=== PATIENT | male | born 1990 | race Caucasian/White ===

== ENCOUNTER 2019-09-22 19:51 | Emergency (ER) | payer OTHER, SELFPAY ==
[2019-09-22 20:01] VITALS: BP 141/84; PULSE 98; RESP 14; TEMP 37; O2SAT 97; BMI 31.9
[2019-09-22 20:45] VITALS: BP 141/84; PULSE 95; O2SAT 94
--- NOTE | 2019-09-22 20:50 | ED.SKABFB ---
HPI - Skin/Abscess/Foreign Bdy General Chief complaint: Skin/Abscess/Foreign Body Stated complaint: Bit or Allergic Reation on Right Side Collar Bone Time Seen by Provider: 09/22/19 20:35 Source: patient Mode of arrival: Ambulatory History of Present Illness HPI narrative: 28-year-old otherwise healthy gentleman presents with a rash developing on the right side of his neck and extending toward his shoulder. Mildly pruritic in causing some simple discomfort with moving his neck. He does have a history of active chickenpox when he was a child. He is not noticing any fevers or systemic viral-like symptoms or myalgias. He has no other complaints today Related Data Previous Rx's Medication Instructions Recorded valacyclovir 1,000 mg PO Q8H #21 tab 09/22/19 Allergies Allergy/AdvReac Type Severity Reaction Status Date / Time No Known Drug Allergies Allergy Verified 09/22/19 20:01 Review of Systems Review of Systems Narrative: Pertinent positive and negative findings as per HPI Remainder of review of systems is otherwise unremarkable for Constitutional: Fevers, chills, weakness ENT: No sore throat, neck pain, ear pain CV: Chest pain, palpitations, dyspnea on exertion Respiratory: Cough, wheeze, dyspnea GI: Nausea, vomiting, diarrhea, change in bowel habits, black or bloody stools : Dysuria, hematuria, flank pain Neuro: Syncope, dizziness, tingling Patient History Medical History Healthy adult (Acute) Social History Smoking Status: Never smoker Smoking Status: Never smoker Substance Use Type: does not use Exam Narrative Exam Narrative: General: Alert appropriate in no acute distress Respiratory: Able to speak in full sentences, no obvious respiratory distress Skin: Developing erythematous plaques with vesicles beginning to develop within the last few hours, in a C4 distribution Neurologic: Grossly intact no obvious asymmetries or abnormalities Psych, appropriate insight and affect, cooperative Initial Vital Signs Initial Vital Signs: Vital Signs Temperature 98.6 F 09/22/19 20:01 Pulse Rate 98 H 09/22/19 20:01 Respiratory Rate 14 09/22/19 20:01 Blood Pressure 141/84 H 09/22/19 20:01 Pulse Oximetry 97 09/22/19 20:01 Course Orders Ordered: Discontinued Medications Valacyclovir HCl (Valtrex) 1,000 mg PO NOW ONE Stop: 09/22/19 20:46 Vital Signs Vital signs: Vital Signs - 8 hr 09/22/19 20:01 09/22/19 20:45 Temperature 98.6 F Pulse Rate 98 H 95 H Respiratory Rate 14 Blood Pressure 141/84 H Blood Pressure [Left Arm] 141/84 H Pulse Oximetry 97 94 MDM - Skin/Abscess/Foreign Bdy Medical Records Attestation: I reviewed the patient's medical records. MDM Narrative Medical decision making narrative: Clinically this appears to be an early presentation of the right-sided C4 shingles outbreak. Will treat with 7 days of valacyclovir. Does not appear to be cellulitis, bug bites or allergic reaction. Patient is safe for home discharge Discharge Plan Departure Patient Disposition: Home Clinical Impression: Shingles Qualifiers: Herpes zoster complications: without complications Qualified Code(s): B02.9 - Zoster without complications Instructions: DI for Shingles Activity Restrictions/Additional Instructions: Thank you for coming in today The rash that your developing over your neck and shoulder area looks like it is shingles. The recommendation to decrease the overall outbreak and help prevent discomfort and pain for you is to use an antiviral medication, Valacyclovir 1000 mg, 3 times a day for 7 days. This may develop into a blistering type rash. If that happens the liquid inside the blisters is very contagious with chickenpox. Once the blisters have crusted over you are no longer contagious. Simply keeping the rash covered in making sure your washing her hands after you have touched it or applied any dressings will be safe and making sure that your not sharing chickenpox with anyone else If the rash seems like it is spreading to the left side of your body, then it is less likely to be shingles and you would need to be re-evaluated. It is not uncommon to feel like your coming down with a viral infection and it can take up to 2 weeks for the rash to completely heal. As long as you are feeling well it is okay to continue working. If you feel that things are getting worse develop new or different symptoms or have further questions please feel free to return to the emergency department and I am happy to re-evaluate Prescriptions: New valacyclovir 1 gram tablet 1,000 mg PO Q8H Qty: 21 RF: 0
[2019-09-22 21:00] VITALS: BP 141/85; PULSE 91; RESP 18; O2SAT 96
[2019-09-22] MEDS: ACYCLOVIR 200 MG CAPSULE 800 MG PO (21:21)
== END 2019-09-22 21:27 | disposition home or self-care (01) ==
PROVIDERS: Emergency Provider Emergency Medicine
DX: B02.9 Zoster without complications (principal)
CPT/HCPCS: 99283

== ENCOUNTER 2022-11-29 07:53 | Emergency (ER) | payer OTHER, SELFPAY ==
[2022-11-29] VITALS (8 sets, daily range): BP systolic 116–130; BP diastolic 60–84; PULSE 65–76; RESP 12–19; TEMP 36.4; O2SAT 94–98; BMI 34.2
--- NOTE | 2022-11-29 08:20 | DI.RAD.S_ITS ---
PROCEDURE: XR CHEST 1V INDICATIONS: chest pain TECHNIQUE: One view of the chest was acquired. COMPARISON: None. FINDINGS: Surgical changes and devices: None. Lungs and pleura: The lungs are clear. No pleural effusions or pneumothorax. Mediastinum: Mediastinal contours appear normal. Heart size is normal. Bones and chest wall: No suspicious bony lesions. Overlying soft tissues appear unremarkable. IMPRESSION: No acute cardiopulmonary pathology. Dictated by: Malik Means M.D. on 11/29/2022 at 8:33 Approved by: Malik Means M.D. on 11/29/2022 at 8:33
[2022-11-29 08:29] LABS: Prothrombin Time 11.4 SECONDS (10.1-12.7)
[2022-11-29 08:31] LABS: PTT Partial Thromboplastin Tim 32 SECONDS (26-36)
[2022-11-29 08:32] LABS: Alanine Aminotransferase 36 IU/L (<50); Albumin 4.4 g/dL (3.5-5.0); Albumin Globulin Ratio 1.3 (1.0-2.8); Alkaline Phosphatase 63 U/L (38-126); Aspartate Aminotransferase 33 IU/L (17-59); BUN Creatinine Ratio 13.8 (6-22); Bilirubin Total 0.5 mg/dL (0.2-1.3); Blood Urea Nitrogen 13 mg/dL (9-20); Calcium 9.5 mg/dL (8.4-10.2); Carbon Dioxide 22 mmol/L (22-32); Chloride 106 mmol/L (98-107); Creatine Kinase 138 U/L (55-170); Estimated Glomerular Filt Rate > 60 mL/min (>60); Globulin 3.4 g/dL (1.7-4.1); Glucose 114 mg/dL (70-100); HEMOLYSIS < 15 (0-50); Lipase 204 U/L (23-300); Magnesium 1.9 mg/dL (1.6-2.3); Potassium 4.1 mmol/L (3.4-5.1); Sodium 137 mmol/L (137-145); Total Protein 7.8 g/dL (6.3-8.2)
[2022-11-29 08:34] LABS: Add Manual Diff / Slide Review NO; Basophils Absolute Auto 0 /uL (0-100); Basophils Percent Auto 0.5 % (0-2); Eosinophils Absolute Auto 200 /uL (0-450); Eosinophils Percent Auto 2.7 % (2-4); Hematocrit 44.9 % (41-53); Hemoglobin 16.2 g/dL (13.5-17.5); Lymphocytes Absolute Auto 2600 /uL (1100-4500); Lymphocytes Percent Auto 35.5 % (25-40); Mean Corpuscular Hemoglobin 31.8 PG (26-34); Mean Corpuscular Volume 87.9 fL (80-100); Monocytes Absolute Auto 700 /uL (0-900); Monocytes Percent Auto 10.1 % (3-14); Neutrophils Absolute Auto 3700 /uL (1500-7000); Neutrophils Percent Auto 51.2 % (50-75); Platelet Count 271 X10^3/uL (150-400); Red Blood Cell Count 5.11 X10^6/uL (4.5-5.9); Red Cell Distribution Width 12.8 % (11.6-14.8); White Blood Cell Count 7.3 X10^3/uL (4.5-11.0)
--- NOTE | 2022-11-29 08:47 | ED.CHESTPAIN ---
HPI - Chest Pain General Chief Complaint: Chest Pain Stated Complaint: shooting pains lower back to armpit/sharp pain alfonso Time Seen by Provider: 11/29/22 08:39 Source: patient and family Mode of arrival: Ambulatory Limitations: no limitations Related Data Previous Rx's Medication Instructions Recorded valacyclovir 1 gram tablet 1,000 mg PO Q8H #21 tabs 09/22/19 Allergies Allergy/AdvReac Type Severity Reaction Status Date / Time No Known Drug Allergies Allergy Verified 11/29/22 08:20 Patient History Medical History (Updated 10/07/19 @ 00:00 by ) Healthy adult Social History Smoking Status: Never smoker Smoking Status: Never smoker Substance Use Type: does not use Exam Initial Vital Signs Initial Vital Signs: Vital Signs Temperature 97.6 F 11/29/22 08:10 Pulse Rate 71 11/29/22 08:10 Respiratory Rate 18 11/29/22 08:10 Blood Pressure 130/84 11/29/22 08:10 Pulse Oximetry 98 11/29/22 08:10 Oxygen Delivery Method Room Air 11/29/22 08:10 Course Orders Ordered: ED Orders 11/29/22 08:10 Complete Blood Count AUTO DIFF Stat Comprehensive Metabolic Panel Stat Lipase Stat Magnesium Stat PTT Partial Thromboplastin [place] Stat Prothrombin Time INR Stat Troponin & CK Cardiac Panel Stat 11/29/22 08:20 XR chest 1V Stat EKG-12 Lead Stat Sodium Chloride (Normal Saline 0.9%) 500 mls @ 1,000 mls/hr IV BOLUS ONE Stop: 11/29/22 09:09 Discontinued Medications Hydromorphone HCl (Hydromorphone 1 Mg Inj) 1 mg IV NOW ONE Stop: 11/29/22 08:41 Ondansetron HCl (Ondansetron 4 Mg/2 Ml Inj) 4 mg IV NOW ONE Stop: 11/29/22 08:41 Vital Signs Vital signs: Vital Signs - 8 hr 11/29/22 08:10 11/29/22 08:15 11/29/22 08:30 Temperature 97.6 F Pulse Rate 71 72 69 Respiratory Rate 18 15 Blood Pressure 130/84 Pulse Oximetry 98 95 96 Oxygen Delivery Method Room Air MDM - Chest Pain Lab Data 11/29/22 08:10 08/01/23 08:10 Labs: Lab Results 11/29/22 11/29/22 11/29/22 Range/Units 08:10 08:10 08:10 WBC 7.3 (4.5-11.0) X10^3/uL RBC 5.11 (4.5-5.9) X10^6/uL Hgb 16.2 (13.5-17.5) g/dL Hct 44.9 (41-53) % MCV 87.9 (80-100) fL MCH 31.8 (26-34) PG MCHC 36.0 (30-36) % RDW 12.8 (11.6-14.8) % Plt Count 271 (150-400) X10^3/uL Neut % (Auto) 51.2 (50-75) % Lymph % (Auto) 35.5 (25-40) % [place] % (Auto) 10.1 (3-14) % Eos % (Auto) 2.7 (2-4) % Baso % (Auto) 0.5 (0-2) % Neut # (Auto) 3700 (2956-6098) /uL Lymph # (Auto) 2600 (1441-3163) /uL [place] # (Auto) 700 (0-900) /uL Eos # (Auto) 200 (0-450) /uL Baso # (Auto) 0 (0-100) /uL PT 11.4 (10.1-12.7) SECONDS INR 1.0 (0.9-1.3) APTT 32 (26-36) SECONDS Sodium 137 (137-145) mmol/L Potassium 4.1 (3.4-5.1) mmol/L Chloride 106 (98-107) mmol/L Carbon Dioxide 22 (22-32) mmol/L BUN 13 (9-20) mg/dL Creatinine 0.94 (0.66-1.25) mg/dL Estimated GFR > 60 (>60) mL/min BUN/Creatinine Ratio 13.8 (6-22) Glucose 114 H (70-100) mg/dL Calcium 9.5 (8.4-10.2) mg/dL Magnesium 1.9 (1.6-2.3) mg/dL Total Bilirubin 0.5 (0.2-1.3) mg/dL AST 33 (17-59) IU/L ALT 36 (<50) IU/L Alkaline Phosphatase 63 (38-126) U/L Total Creatine Kinase 138 (55-170) U/L Total Protein 7.8 (6.3-8.2) g/dL Albumin 4.4 (3.5-5.0) g/dL Globulin 3.4 (1.7-4.1) g/dL Albumin/Globulin Ratio 1.3 (1.0-2.8) Lipase 204 (23-300) U/L Discharge Plan Departure Prescriptions: No Action valacyclovir 1 gram tablet 1,000 mg PO Q8H Qty: 21 0RF Referrals: Provider,Becki RASCON [Primary Care Provider] -
--- NOTE | 2022-11-29 08:48 | DI.CT.S_ITS ---
PROCEDURE: CT ABDOMEN PELVIS W CON INDICATIONS: IV contrast only/left side pain TECHNIQUE: After the administration of intravenous contrast, axial sections acquired from the lung bases to the pubic symphysis. Coronal and sagittal reformats were performed. For radiation dose reduction, the following was used: automated exposure control, adjustment of mA and/or kV according to patient size. COMPARISON: None. FINDINGS: Image quality: Excellent. Lung bases: Unremarkable. Heart: No significant findings. ABDOMEN: Liver: There is mild hepatic steatosis . There is a tiny hypodense area involving left hepatic lobe medial segment measures 7 mm in size likely represent benign process such as hepatic cyst series 2, image 20. Gallbladder: Unremarkable. Biliary ducts: Unremarkable. Pancreas: Unremarkable. Spleen: Unremarkable. Adrenal Glands: Unremarkable. Kidneys and Ureters: Unremarkable. Stomach and Bowel: There is a small hiatal hernia. No bowel obstruction or abnormal bowel wall thickening. No mesenteric fat stranding. No abscess collection.. Peritoneum: No abnormal intraperitoneal fluid. No free air. Ventral Wall: No hernias. Abdominal Nodes: No retroperitoneal or mesenteric adenopathy by size criteria. Vessels: Aorta and inferior vena cava are normal in size. PELVIS: Pelvic Organs: Unremarkable. Bladder: Unremarkable. Pelvic Nodes: No enlarged lymph nodes. Miscellaneous: No hernias are seen. Bones: No suspicious bony lesions. No acute vertebral body compression fracture. IMPRESSION: 1. No acute inflammatory process is seen in abdomen or pelvis. No finding to explain patient's symptoms. 2. Hepatic steatosis and tiny likely hepatic cyst as above. 3. Small hiatal hernia. Dictated by: Malik Means M.D. on 11/29/2022 at 9:53 Approved by: Malik Means M.D. on 11/29/2022 at 10:00
--- NOTE | 2022-11-29 08:48 | DI.CT.S_ITS ---
PROCEDURE: CT ANGIO CHEST PE PROTOCOL INDICATIONS: Left side pain TECHNIQUE: After the administration of intravenous contrast, 2 mm thick sections acquired from the pulmonary apices to the posterior costophrenic angles. 3-dimensional maximum intensity projection (MIP) coronal and sagittal reformats were then acquired through the thorax. For radiation dose reduction, the following was used: automated exposure control, adjustment of mA and/or kV according to patient size. COMPARISON: None. FINDINGS: Image quality: Excellent. Pulmonary arteries: Pulmonary arteries are normal in size, and demonstrate no intraluminal filling defects to suggest central pulmonary embolism. Lungs and pleura: Mild dependent atelectasis in posterior aspect of bilateral lung bases are seen. No focal infiltrate. No pleural effusions or pneumothorax. Central and peripheral airways are patent. Mediastinum: Heart size is normal, without pericardial effusion. No mediastinal or hilar adenopathy. Thoracic aorta is normal in caliber and enhancement. Esophagus is normal in caliber, with a small hiatal hernia. Bones and chest wall: No suspicious bony lesions. Ribs and thoracic spine appear intact throughout. Thyroid gland is within normal limits. No axillary or supraclavicular adenopathy. Abdomen: Visualized upper abdominal solid organs appear normal in the early arterial phase of enhancement. IMPRESSION: 1. No pulmonary emboli. No thoracic aortic aneurysm or dissection. 2. Dependent atelectasis in bilateral lung bases. Bilateral lungs are otherwise clear. 3. No mediastinal or hilar lymphadenopathy. No pericardial effusion. Small hiatal hernia. Dictated by: Malik Means M.D. on 11/29/2022 at 9:43 Approved by: Malik Means M.D. on 11/29/2022 at 9:49
--- NOTE | 2022-11-29 08:49 | ED.ABDPAIN ---
HPI - Abdominal Pain General Chief Complaint: Chest Pain Stated Complaint: shooting pains lower back to armpit/sharp pain alfonso Time Seen by Provider: 11/29/22 08:39 Source: patient and family Mode of arrival: Ambulatory History of Present Illness HPI narrative: Patient brought here by from home for complaints of left-sided abdominal pain that radiates to the back. No chest pain. Pain is left upper quadrant lower ribs. Patient states he awoke at 7:00 a.m. this morning with this pain. Increased pain with movement and palpation of the left side of the abdomen. As well as left CVA tenderness. No direct chest pain. No shortness of breath. Pain is worse with movement and on palpation and movement of the left arm. Patient states 3 months ago he was in [place], is with the , had sudden onset of left sided pain and discomfort and trouble speaking. He was given tPA. There was some improvement with the speech but has left him with speech impediment. No residual left-sided weakness. He did have echocardiogram. No history of aortic aneurysm or dissection. Patient denies any syncope. No nausea or sweating. No weakness. 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 Left left leg which causes increased pain to the left lower abdomen. Movement of left arm above the head causes pain to the left abdomen as well. Patient does have speech impediment but otherwise clear speech Related Data Previous Rx's Medication Instructions Recorded valacyclovir 1 gram tablet 1,000 mg PO Q8H #21 tabs 09/22/19 hydrocodone 5 mg-acetaminophen 325 1 tab PO Q6H PRN pain #12 tabs 11/29/22 mg tablet ondansetron 4 mg disintegrating 4 mg PO Q8H PRN nausea and 11/29/22 tablet vomiting #10 tabs Allergies Allergy/AdvReac Type Severity Reaction Status Date / Time No Known Drug Allergies Allergy Verified 11/29/22 08:20 Review of Systems Review of Systems Narrative: GENERAL: negative chills, fatigue, malaise, fever, sweats. HEENT: negative sinus pain, ear pain, sore throat RESPIRATORY: negative dyspnea, cough CARDIOVASCULAR: negative chest pain, palpitations GASTROINTESTINAL: negative nausea, vomiting, positive abdominal pain : negative dysuria, frequency, hematuria MUSCULOSKELETAL: negative muscle or bony pain SKIN: negative rash, skin lesions NEUROLOGIC: negative weakness, numbness ROS Unobtainable: All systems reviewed & are unremarkable except as noted in HPI and below Patient History Medical History (Updated 11/29/22 @ 10:52 by Henry Cho MD) Healthy adult Social History Smoking Status: Never smoker Smoking Status: Never smoker Substance Use Type: does not use Exam Narrative Exam Narrative: GENERAL: in no distress, not toxic not dyspneic HEAD: Normocephalic. EYES: Pupils equal round ENT: Mucous membranes moist. NECK: Trachea midline. CARDIOVASCULAR: Regular rate and rhythm without murmurs RESPIRATORY: Clear to auscultation. Breath sounds equal bilaterally. No wheezes, rales, or rhonchi. GASTROINTESTINAL: Abdomen soft, there is reproducible left upper and left lower quadrant tenderness. Bowel sounds are present. There is mild left CVA tenderness. No peritoneal signs. No pain out of proportion to exam. Bowel sounds are present. Increased abdominal pain with left leg raise as well as bringing left hand and arm above the head. EXTREMITIES: No gross deformities. BACK: Mild left CVA tenderness NEURO: AOx4. SKIN: Warm and dry PSYCH: Not anxious, is cooperative Initial Vital Signs Initial Vital Signs: Vital Signs Temperature 97.6 F 11/29/22 08:10 Pulse Rate 71 11/29/22 08:10 Respiratory Rate 18 11/29/22 08:10 Blood Pressure 130/84 11/29/22 08:10 Pulse Oximetry 98 11/29/22 08:10 Oxygen Delivery Method Room Air 11/29/22 08:10 Course Orders Ordered: ED Orders 11/29/22 08:10 Complete Blood Count AUTO DIFF Stat Comprehensive Metabolic Panel Stat Lipase Stat Magnesium Stat PTT Partial Thromboplastin Timi Stat Prothrombin Time INR Stat Troponin & CK Cardiac Panel Stat 11/29/22 08:20 XR chest 1V Stat EKG-12 Lead Stat 11/29/22 08:48 CT abdomen pelvis w con Stat CT angio chest PE protocol Stat Discontinued Medications Hydromorphone HCl (Hydromorphone 1 Mg Inj) 1 mg IV NOW ONE Stop: 11/29/22 08:41 Last Admin: 11/29/22 09:31 Dose: 1 mg Documented By: AMV Sodium Chloride (Normal Saline 0.9%) 500 mls @ 1,000 mls/hr IV BOLUS ONE Stop: 11/29/22 09:09 Last Infusion: 11/29/22 10:10 Dose: 0 mls/hr Documented By: Admin: 11/29/22 09:31 Dose: 1,000 mls/hr Documented By: AMV Ondansetron HCl (Ondansetron 4 Mg/2 Ml Inj) 4 mg IV NOW ONE Stop: 11/29/22 08:41 Last Admin: 11/29/22 09:31 Dose: 4 mg Documented By: AMV Vital Signs Vital signs: Vital Signs - 8 hr 11/29/22 08:10 11/29/22 08:15 11/29/22 08:30 Temperature 97.6 F Pulse Rate 71 72 69 Respiratory Rate 18 15 Blood Pressure 130/84 Pulse Oximetry 98 95 96 Oxygen Delivery Method Room Air 11/29/22 09:10 11/29/22 09:30 11/29/22 09:48 Temperature Pulse Rate 73 76 75 Respiratory Rate 19 12 Blood Pressure Pulse Oximetry 96 95 Oxygen Delivery Method 11/29/22 09:48 11/29/22 10:00 11/29/22 10:00 Temperature Pulse Rate 71 Respiratory Rate 14 Blood Pressure 119/72 123/60 Pulse Oximetry 96 Oxygen Delivery Method 11/29/22 10:30 11/29/22 10:30 Temperature Pulse Rate 65 Respiratory Rate 16 Blood Pressure 116/68 Pulse Oximetry 94 Oxygen Delivery Method MDM - Abdominal Pain Lab Data 11/29/22 08:10 11/29/22 08:10 Labs: Lab Results 11/29/22 11/29/22 11/29/22 Range/Units 08:10 08:10 08:10 WBC 7.3 (4.5-11.0) X10^3/uL RBC 5.11 (4.5-5.9) X10^6/uL Hgb 16.2 (13.5-17.5) g/dL Hct 44.9 (41-53) % MCV 87.9 (80-100) fL MCH 31.8 (26-34) PG MCHC 36.0 (30-36) % RDW 12.8 (11.6-14.8) % Plt Count 271 (150-400) X10^3/uL Neut % (Auto) 51.2 (50-75) % Lymph % (Auto) 35.5 (25-40) % Knox % (Auto) 10.1 (3-14) % Eos % (Auto) 2.7 (2-4) % Baso % (Auto) 0.5 (0-2) % Neut # (Auto) 3700 (5800-8801) /uL Lymph # (Auto) 2600 (2450-1168) /uL Knox # (Auto) 700 (0-900) /uL Eos # (Auto) 200 (0-450) /uL Baso # (Auto) 0 (0-100) /uL PT 11.4 (10.1-12.7) SECONDS INR 1.0 (0.9-1.3) APTT 32 (26-36) SECONDS Sodium 137 (137-145) mmol/L Potassium 4.1 (3.4-5.1) mmol/L Chloride 106 (98-107) mmol/L Carbon Dioxide 22 (22-32) mmol/L BUN 13 (9-20) mg/dL Creatinine 0.94 (0.66-1.25) mg/dL Estimated GFR > 60 (>60) mL/min BUN/Creatinine Ratio 13.8 (6-22) Glucose 114 H (70-100) mg/dL Calcium 9.5 (8.4-10.2) mg/dL Magnesium 1.9 (1.6-2.3) mg/dL Total Bilirubin 0.5 (0.2-1.3) mg/dL AST 33 (17-59) IU/L ALT 36 (<50) IU/L Alkaline Phosphatase 63 (38-126) U/L Total Creatine Kinase 138 (55-170) U/L Troponin I < 0.012 (0.01-0.034) ng/mL Total Protein 7.8 (6.3-8.2) g/dL Albumin 4.4 (3.5-5.0) g/dL Globulin 3.4 (1.7-4.1) g/dL Albumin/Globulin Ratio 1.3 (1.0-2.8) Lipase 204 (23-300) U/L Imaging Data Chest x-ray: Radiologist's Impression: [address] [address] XRay Report Signed Patient: Prabhakar Noel MR#: [id number] : 1990 Acct:[id number] Age/Sex: 32 / M Date of Service: 11/29/22 Loc: ED Accession Number: [id number] ?? Procedure: XR chest 1V Ordering Provider: Henry Cho MD PROCEDURE:? XR CHEST 1V ? INDICATIONS:? chest pain ? TECHNIQUE:? One view of the chest was acquired.? ? COMPARISON:? None. ? FINDINGS:? ? Surgical changes and devices:? None.? ? Lungs and pleura:? The lungs are clear.? No pleural effusions or pneumothorax.? ? Mediastinum:? Mediastinal contours appear normal.? Heart size is normal.? ? Bones and chest wall:? No suspicious bony lesions.? Overlying soft tissues appear unremarkable.? ? IMPRESSION:? No acute cardiopulmonary pathology.? ? ? Dictated by: Malik Means M.D. on 11/29/2022 at 8:33 ? ? Approved by: Malik Means M.D. on 11/29/2022 at 8:33 ? CT scan - chest: Radiologist's Impression: [place] [address] CT Scan Report Signed Patient: Prabhakar Noel MR#: [id number] : 1990 Acct:[id number] Age/Sex: 32 / M Date of Service: 11/29/22 Loc: ED Accession Number: [id number] ?? Procedure: CT angio chest PE protocol Ordering Provider: Henry Cho MD PROCEDURE:? CT ANGIO CHEST PE PROTOCOL ? INDICATIONS:? Left side pain ? TECHNIQUE:? After the administration of intravenous contrast, 2 mm thick sections acquired from the pulmonary apices to the posterior costophrenic angles.? 3-dimensional maximum intensity projection (MIP) coronal and sagittal reformats were then acquired through the thorax.? For radiation dose reduction, the following was used:? automated exposure control, adjustment of mA and/or kV according to patient size.? ? COMPARISON:? None. ? FINDINGS:? Image quality:? Excellent.? ? Pulmonary arteries:? Pulmonary arteries are normal in size, and demonstrate no intraluminal filling defects to suggest central pulmonary embolism.? ? Lungs and pleura:? Mild dependent atelectasis in posterior aspect of bilateral lung bases are seen.? No focal infiltrate.? No pleural effusions or pneumothorax.? Central and peripheral airways are patent.? ? Mediastinum:? Heart size is normal, without pericardial effusion.? No mediastinal or hilar adenopathy.? Thoracic aorta is normal in caliber and enhancement.? Esophagus is normal in caliber, with a small hiatal hernia.? ? Bones and chest wall:? No suspicious bony lesions.? Ribs and thoracic spine appear intact throughout.? Thyroid gland is within normal limits.? No axillary or supraclavicular adenopathy.? ? Abdomen:? Visualized upper abdominal solid organs appear normal in the early arterial phase of enhancement.? ? IMPRESSION:? ? 1. No pulmonary emboli.? No thoracic aortic aneurysm or dissection. ? 2. Dependent atelectasis in bilateral lung bases.? Bilateral lungs are otherwise clear. ? 3. No mediastinal or hilar lymphadenopathy.? No pericardial effusion.? Small hiatal hernia.? ? ? Dictated by: Malik Means M.D. on 11/29/2022 at 9:43 ? ? Approved by: Malik Means M.D. on 11/29/2022 at 9:49 ? CT scan - abdomen/pelvis: Radiologist's Impression: [place] [address] CT Scan Report Signed Patient: Prabhakar Noel MR#: [id number] : 1990 Acct:[id number] Age/Sex: 32 / M Date of Service: 11/29/22 Loc: ED Accession Number: [id number] ?? Procedure: CT abdomen pelvis w con Ordering Provider: Henry Cho MD PROCEDURE:? CT ABDOMEN PELVIS W CON ? INDICATIONS:? IV contrast only/left side pain ? TECHNIQUE:? After the administration of intravenous contrast, axial sections acquired from the lung bases to the pubic symphysis.? Coronal and sagittal reformats were performed.? For radiation dose reduction, the following was used:? automated exposure control, adjustment of mA and/or kV according to patient size.? ? COMPARISON:? None. ? FINDINGS:? Image quality:? Excellent.? ? Lung bases:? Unremarkable. Heart:? No significant findings. ? ABDOMEN: Liver:? There is mild hepatic steatosis .? There is a tiny hypodense area involving left hepatic lobe medial segment measures 7 mm in size likely represent benign process such as hepatic cyst series 2, image 20. Gallbladder:? Unremarkable.? Biliary ducts:? Unremarkable.? ? Pancreas:? Unremarkable.? ? Spleen:? Unremarkable.? ? Adrenal Glands:? Unremarkable.? ? Kidneys and Ureters:? Unremarkable.? ? ? Stomach and Bowel:? There is a small hiatal hernia.? No bowel obstruction or abnormal bowel wall thickening.? No mesenteric fat stranding.? No abscess collection..? Peritoneum:? No abnormal intraperitoneal fluid.? No free air.? ? Ventral Wall: ? No hernias.? Abdominal Nodes:? No retroperitoneal or mesenteric adenopathy by size criteria.? Vessels:? Aorta and inferior vena cava are normal in size.? ? PELVIS: Pelvic Organs:? Unremarkable.? ? Bladder:? Unremarkable.? ? Pelvic Nodes: No enlarged lymph nodes.? Miscellaneous: No hernias are seen. ? ? ? Bones:? No suspicious bony lesions.? No acute vertebral body compression fracture. ? ? IMPRESSION:? ? 1. No acute inflammatory process is seen in abdomen or pelvis.? No finding to explain patient's symptoms. ? 2. Hepatic steatosis and tiny likely hepatic cyst as above. ? 3. Small hiatal hernia.? ? ? Dictated by: Malik Means M.D. on 11/29/2022 at 9:53 ? ? Approved by: Malik Means M.D. on 11/29/2022 at 10:00 ? MDM Narrative Medical decision making narrative: Patient brought here by from home for complaints of left-sided abdominal pain that radiates to the back. No chest pain. Pain is left upper quadrant lower ribs. Patient states he awoke at 7:00 a.m. this morning with this pain. Increased pain with movement and palpation of the left side of the abdomen. As well as left CVA tenderness. No direct chest pain. No shortness of breath. Pain is worse with movement and on palpation and movement of the left arm. Patient states 3 months ago he was in [place], is with the , had sudden onset of left sided pain and discomfort and trouble speaking. He was given tPA. There was some improvement with the speech but has left him with speech impediment. No residual left-sided weakness. He did have echocardiogram. No history of aortic aneurysm or dissection. Patient denies any syncope. No nausea or sweating. No weakness. 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 Left left leg which causes increased pain to the left lower abdomen. Movement of left arm above the head causes pain to the left abdomen as well. Patient does have speech impediment but otherwise clear speech After history and exam CBC CMP lipase troponin EKG CT chest abdomen pelvis Dilaudid Zofran normal saline MDM CC: Left abdominal pain Complicating co-morbidities: History of possible stroke Data collected from: Patient and Medical records reviewed: No recent visit for this complaint Differential considered: Includes but not limited to pulmonary embolism aortic dissection aortic aneurysm/thoracic aneurysm, diverticulitis kidney stone Exam documented above, pertinent findings include: Tender abdomen Lab Test results independently reviewed as above. Pertinent findings: WBC 7.3 hemoglobin 16.2 INR 1.0 sodium 137 AST 33 ALT 36 lipase 204 Troponin less than 0.012 Independently reviewed EKG normal sinus rhythm rate [address] elevation or depression Imaging studies independently reviewed: CT chest abdomen pelvis chest x-ray no acute finding Consultations: Not indicated at this time Treatments: Dilaudid Zofran normal saline Re-evaluations: 10:54 a.m.. Patient feeling much better. Reviewed results with patient and . Patient states since this event 3 months ago in [place], he is had intermittent left-sided pain. This is not new. He is had chronic numbness and tingling to the left side of his body. He has appointment with [facility], in the next couple of months for neurology evaluation of his problem. At this time laboratory studies imaging are reassuring. He sees 4 different providers but none of them have written him for breakthrough pain medication. We have agreed for short course of this to be used. No history of narcotic abuse. Return precautions reviewed with him. is driving. They desire discharge home Discussion: Appropriate for discharge home. Exam and laboratory studies imaging are reassuring. Pain is controlled. This is not new for patient. Has recurrent pain since his incident 3 months ago in [place]. He has follow up appointment scheduled to continue evaluation for this problem. Return precautions reviewed. They desire discharge home. Pain is located abdominal, it is reproducible. Not chest pain. Diagnosis: Abdominal pain Discharge Plan Departure Patient Disposition: Home Clinical Impression: Abdominal pain Instructions: DI for Abdominal Pain-Adult Activity Restrictions/Additional Instructions: See your family doctor as well as neurologist as scheduled for re-evaluation of your ongoing left-sided pain. No driving or operating machinery today. Or when taking prescribed pain medication. Return if worse if any questions or concerns. Work note has been provided for you as well. Prescriptions: New hydrocodone-acetaminophen 5-325 mg tablet 1 tab PO Q6H PRN (Reason: pain) Qty: 12 0RF ondansetron 4 mg tablet,disintegrating 4 mg PO Q8H PRN (Reason: nausea and vomiting) Qty: 10 0RF No Action valacyclovir 1 gram tablet 1,000 mg PO Q8H Qty: 21 0RF Referrals: ProviderBecki [Primary Care Provider] - Stand Alone Forms: Patient Portal/API
[2022-11-29 09:06] LABS: Troponin I < 0.012 ng/mL (0.01-0.034)
[2022-11-29] MEDS: SODIUM CHLORIDE 0.9% 500 ML 1000 ML IV (09:31)
[2022-11-29] MEDS: ONDANSETRON 4 MG/2 ML INJ IV (09:31)
[2022-11-29] MEDS: HYDROMORPHONE 1 MG INJ IV (09:31)
== END 2022-11-29 11:12 | disposition home or self-care (01) ==
PROVIDERS: Emergency Provider Emergency Medicine
DX: R10.12 Left upper quadrant pain (principal); R10.32 Left lower quadrant pain; R07.9 Chest pain, unspecified
CPT/HCPCS: 36415; 71045; 71275; 74177; 80053; 82550; 83690; 83735; 84484; 85025; 85610; 85730; 93005; 93010; 96374; 96375; 99284; J1170; J2405; Q9967

== ENCOUNTER 2022-12-03 13:10 | Emergency (ER) | payer OTHER, SELFPAY ==
[2022-12-03 13:26] VITALS: BP 131/73; PULSE 73; RESP 18; TEMP 36.8; O2SAT 96; BMI 33.8
--- NOTE | 2022-12-03 14:11 | DI.MRI.S_ITS ---
PROCEDURE: MR LUMBAR SPINE WO CON INDICATIONS: L lower back pain with radiculopathy TECHNIQUE: Noncontrast sagittal T1 spin echo and T2 fast echo, sagittal STIR, and T2 fast spin echo through the lumbar spine. In cases with scoliosis, additional coronal T2 fast spin echo may be performed. COMPARISON: [facility], CT, CT ABDOMEN PELVIS W CON, 11/29/2022, 9:07. FINDINGS: Image quality: Excellent. Alignment and Curvature: There is minimal L5-S1 anterolisthesis, with associated bilateral pars defects. Bone Marrow: Mild loss of the normal fatty marrow signal can be seen, particularly on the T1 weighted images. No acute vertebral body compression fractures. At the superior endplate of L2, there is a remote Schmorl's node, as on series 2, image 9. Spinal Cord: Conus medullaris terminates at the L1 level. Visualized cord demonstrates normal signal and size. Paraspinous Soft Tissues: No paravertebral masses. T12-L1: Normal appearance. L1-L2: Normal appearance. L2-L3: Normal appearance. L3-L4: No significant abnormality is seen. L4-L5: Mild loss of disc height is seen. Loss of disc signal is seen. Moderate disc bulge is seen, with a moderate central disc protrusion. Mild to moderate facet hypertrophy can be seen. There is moderate right-sided and mild left-sided neural foraminal narrowing. Mild central canal narrowing is seen. L5-S1: Mild loss of disc height is seen. Loss of disc signal is seen. Mild to moderate disc bulge is seen, with a mild central disc extrusion, with mild superior migration of the disc material. There is a focal annular fissure seen posteriorly. Moderate bilateral neural foraminal narrowing is seen. No significant central canal narrowing is seen. IMPRESSION: Focal lower lumbar spine degenerative changes are seen, including a mild central disc extrusion at the L5-S1 level. There is an associated annular fissure. At L5, bilateral pars defects are seen, with associated minimal L5-S1 anterolisthesis. Dictated by: Washington Rawls M.D. on 12/03/2022 at 14:40 Approved by: Washington Rawls M.D. on 12/03/2022 at 14:43
--- NOTE | 2022-12-03 14:12 | ED_ITS ---
HPI - Back Pain/Injury General Chief Complaint: Back Pain/Injury Stated Complaint: reoccuring symptoms from previous er visit Time Seen by Provider: 12/03/22 13:18 Source: patient Mode of arrival: Ambulatory History of Present Illness HPI Narrative: Patient is a 32-year-old male. Is here for evaluation of lower back discomfort. He was seen here in the emergency department several days ago where he was complaining of lower back discomfort but was also having left-sided flank pain. He would a fairly extensive workup at that time to include CT scans which did not show any acute pathology. He was told that he needed to follow-up with his primary doctor. He is since followed up with his primary provider and he states that the medications he was sent home with has not been improving even after increasing the dose of these medications. He denies any urinary symptoms. No change in bowel habits. No skin rashes. He states that the pain is now localized in his lower back. There was not 1 specific incident that caused the pain. He has had other neurologic symptoms several months ago when he was at training for the [employer] where he states he passed out. He was seen at the emergency department. There was concern about a stroke. He was given tPA. He had extensive workup afterwards in the decision was made that he did not have a stroke. Since that time he has developed stuttering. He states he is had extensive workup at this without any specific cause. He is scheduled to see Neurology and other specialist. He is also seeing Behavioral Health in physical therapy and speech therapy. Related Data Previous Rx's Medication Instructions Recorded valacyclovir 1 gram tablet 1,000 mg PO Q8H #21 tabs 09/22/19 hydrocodone 5 mg-acetaminophen 325 1 tab PO Q6H PRN pain #12 tabs 11/29/22 mg tablet ondansetron 4 mg disintegrating 4 mg PO Q8H PRN nausea and 11/29/22 tablet vomiting #10 tabs cyclobenzaprine 10 mg tablet 10 mg PO TID PRN muscle spasm #14 12/03/22 tabs hydrocodone 5 mg-acetaminophen 325 1 tab PO Q4-6H PRN pain #20 tabs 12/03/22 mg tablet methylprednisolone 4 mg tablets in See Rx Instructions PO .COMPLEX 12/03/22 a dose pack (Medrol (Rubio)) #21 ea Allergies Allergy/AdvReac Type Severity Reaction Status Date / Time No Known Drug Allergies Allergy Verified 11/29/22 08:20 Review of Systems Constitutional Constitutional: Reports system reviewed and no additional complaints, except as documented Musculoskeletal Musculoskeletal: Reports system reviewed and no additional complaints, except as documented Integumentary/Breasts Skin/Breast: Reports system reviewed and no additional complaints, except as documented Neurologic Neurologic: Reports system reviewed and no additional complaints, except as documented Hematologic/Lymphatic On Anticoagulants: No Patient History Medical History (Updated 12/03/22 @ 16:13 by Sha Castillo DO) Healthy adult Social History Smoking Status: Never smoker Smoking Status: Never smoker Substance Use Type: does not use Exam Initial Vital Signs Initial Vital Signs: Vital Signs Temperature 98.3 F 12/03/22 13:26 Pulse Rate 73 12/03/22 13:26 Respiratory Rate 18 12/03/22 13:26 Blood Pressure 131/73 12/03/22 13:26 Pulse Oximetry 96 12/03/22 13:26 Oxygen Delivery Method Room Air 12/03/22 13:26 Resp Effort & Inspection: normal respiratory effort Cardio Rate: regular rate GI Inspection: normal to inspection and non-distended Back/Spine/Pelvis Cervical Spine: No cervical muscular tenderness and No cervical spinal tenderness Thoracic/Lumbar Spine: paraspinal tenderness, No thoracic spinal tenderness and lumbar spinal tenderness Skin General: no rashes or lesions noted Neuro General: patient alert, patient awake, patient oriented x3 and moves all extremities Gait: normal gait Sensory Exam: no sensory deficits noted Extrem Other: No gross deformities Course Orders Ordered: ED Orders 12/03/22 14:11 MR lumbar spine wo con Stat Vital Signs Vital signs: Vital Signs - 8 hr 12/03/22 13:26 12/03/22 14:43 Temperature 98.3 F Pulse Rate 73 70 Respiratory Rate 18 18 Blood Pressure 131/73 Pulse Oximetry 96 98 Oxygen Delivery Method Room Air Room Air MDM - Back Pain/Injury Imaging Data lumbar spine MRI: Radiologist's Impression: PROCEDURE:? MR LUMBAR SPINE WO CON ? INDICATIONS:? L lower back pain with radiculopathy ? TECHNIQUE:? Noncontrast sagittal T1 spin echo and T2 fast echo, sagittal STIR, and T2 fast spin echo through the lumbar spine.? In cases with scoliosis, additional coronal T2 fast spin echo may be performed.? ? COMPARISON:? [facility], CT, CT ABDOMEN PELVIS W CON, 11/29/2022, 9:07. ? FINDINGS:? Image quality:? Excellent.? ? Alignment and Curvature:? There is minimal L5-S1 anterolisthesis, with associated bilateral pars defects. ? Bone Marrow:? Mild loss of the normal fatty marrow signal can be seen, particularly on the T1 weighted images.? No acute vertebral body compression fractures.? At the superior endplate of L2, there is a remote Schmorl's node, as on series 2, image 9. ? Spinal Cord:? Conus medullaris terminates at the L1 level.? Visualized cord demonstrates normal signal and size.? ? Paraspinous Soft Tissues:? No paravertebral masses.? ? T12-L1:? Normal appearance.? ? L1-L2:? Normal appearance.? ? L2-L3:? Normal appearance.? ? L3-L4:? No significant abnormality is seen. ? L4-L5:? Mild loss of disc height is seen. Loss of disc signal is seen.? Moderate disc bulge is seen, with a moderate central disc protrusion.? Mild to moderate facet hypertrophy can be seen.? There is moderate right-sided and mild left-sided neural foraminal narrowing. Mild central canal narrowing is seen.? ? L5-S1:? Mild loss of disc height is seen. Loss of disc signal is seen.? Mild to moderate disc bulge is seen, with a mild central disc extrusion, with mild superior migration of the disc material. There is a focal annular fissure seen posteriorly.? Moderate bilateral neural foraminal narrowing is seen.? No significant central canal narrowing is seen. ? ? IMPRESSION:? Focal lower lumbar spine degenerative changes are seen, including a mild central disc extrusion at the L5-S1 level.? There is an associated annular fissure. ? At L5, bilateral pars defects are seen, with associated minimal L5-S1 anterolisthesis. MDM Narrative Medical decision making narrative: Symptoms today are not new but have been worsening. Low suspicion for cauda equina. MRI shows degenerative disc disease specific the L5-S1 region. I had a discussion with the patient regarding this. Plan will be is to start him on a Medrol Dosepak. Pain medication and muscle relaxers given as well for symptom control. [place] He was given return precautions. He expressed understanding and agreement. Discharge Plan Departure Patient Disposition: Home Clinical Impression: Degenerative disc disease, lumbar Instructions: DI for Low Back Pain Activity Restrictions/Additional Instructions: I do recommend that you try to stay as active as possible. On Monday contact your medical department let them know that you did receive an MRI today and did show degenerative disc disease and your lumbar spine. You can have a discussion with them with regard to the next steps. Medications were sent to [facility] per your request. Please take them as directed. Return to the emergency department for new or worsening symptoms. Prescriptions: New hydrocodone-acetaminophen 5-325 mg tablet 1 tab PO Q4-6H PRN (Reason: pain) Qty: 20 0RF cyclobenzaprine 10 mg tablet 10 mg PO TID PRN (Reason: muscle spasm) Qty: 14 0RF methylprednisolone [Medrol (Rubio)] 4 mg tablets,dose pack See Rx Instructions .ROUTE .COMPLEX Qty: 21 0RF Rx Instructions: orally per package directions No Action valacyclovir 1 gram tablet 1,000 mg PO Q8H Qty: 21 0RF hydrocodone-acetaminophen 5-325 mg tablet 1 tab PO Q6H PRN (Reason: pain) Qty: 12 0RF ondansetron 4 mg tablet,disintegrating 4 mg PO Q8H PRN (Reason: nausea and vomiting) Qty: 10 0RF Referrals: ProviderBecki [Primary Care Provider] - Stand Alone Forms: Patient Portal/API
[2022-12-03 14:43] VITALS: PULSE 70; RESP 18; O2SAT 98
[2022-12-03 16:22] VITALS: PULSE 73; RESP 18; O2SAT 98
== END 2022-12-03 16:23 | disposition home or self-care (01) ==
PROVIDERS: Emergency Provider Emergency Medicine
DX: M51.36 Other intervertebral disc degeneration, lumbar region (principal)
CPT/HCPCS: 72148; 99283

== ENCOUNTER 2022-12-16 14:09 | Emergency (ER) | payer OTHER, SELFPAY ==
[2022-12-16 14:29] VITALS: BP 120/77; PULSE 83; RESP 16; TEMP 36.6; O2SAT 96; BMI 33.9
[2022-12-16] MEDS: OXYCODONE/ACETAMINOPHEN 5/325 TABLET 1 TAB PO (16:56)
[2022-12-16] MEDS: predniSONE 20 MG TABLET 60 MG PO (16:56)
[2022-12-16] MEDS: methocarbamoL 500 MG TABLET 750 MG PO (16:56)
[2022-12-16] MEDS: LIDOCAINE PATCH 1 EACH ADH..PATCH TOP (16:57)
[2022-12-16] MEDS: KETOROLAC 30 MG/ML VIAL 15 MG IM (16:57)
--- NOTE | 2022-12-16 17:28 | ED.BACK ---
HPI - Back Pain/Injury <Rahda Foster, [facility] - Last Filed: 12/16/22 18:02> General Chief Complaint: Back Pain/Injury Stated Complaint: back pain worsening Time Seen by Provider: 12/16/22 16:33 History of Present Illness HPI Narrative: This is a complicated low back pain patient who presents to the emergency department with exacerbation of his low back pain. Since July, patient has been worked up with MRI of his lumbar spine and his brain and [facility] is concerned that patient may have had a stroke at this time because he is had a speech abnormality since this episode and patient spent 5 days as an inpatient with multiple test at that time. Lumbar spine MRI of 12/03/2022 shows focal lower lumbar degenerative changes including mild central disc extrusion at the L5-S1 level with associated annular fissure posteriorly. Moderate neural foraminal narrowing seen with no significant central canal narrowing. Loss of disc signal is seen. Mild superior migration of the discontinue oral. Bilateral pars defects seen at L5 with associated minimal L5-S1 anterolisthesis. Patient presents today with exacerbation of low back pain, states it is severe in nature and has had courses of steroids in the past for this. States that he has a flare of this pain with spasm and denies any weakness, GI or changes, no stool changes, denies any groin paresthesia, states that his pain has just gotten severe. Related Data Previous Rx's Medication Instructions Recorded valacyclovir 1 gram tablet 1,000 mg PO Q8H #21 tabs 09/22/19 hydrocodone 5 mg-acetaminophen 325 1 tab PO Q6H PRN pain #12 tabs 11/29/22 mg tablet ondansetron 4 mg disintegrating 4 mg PO Q8H PRN nausea and 11/29/22 tablet vomiting #10 tabs cyclobenzaprine 10 mg tablet 10 mg PO TID PRN muscle spasm #14 12/03/22 tabs hydrocodone 5 mg-acetaminophen 325 1 tab PO Q4-6H PRN pain #20 tabs 12/03/22 mg tablet methylprednisolone 4 mg tablets in See Rx Instructions PO .COMPLEX 12/03/22 a dose pack (Medrol (Rubio)) #21 ea hydrocodone 7.5 mg-acetaminophen 1 tab PO Q8H PRN pain #14 tabs 12/16/22 325 mg tablet lidocaine 5 % topical patch 1 patch topical Q12HR PRN pain #30 12/16/22 ea methocarbamol 750 mg tablet 750 mg PO TID PRN muscle spasm #30 12/16/22 tabs Allergies Allergy/AdvReac Type Severity Reaction Status Date / Time No Known Drug Allergies Allergy Verified 11/29/22 08:20 Review of Systems <GAEL Issa - Last Filed: 12/16/22 18:02> Review of Systems ROS Unobtainable: All systems reviewed & are unremarkable except as noted in HPI and below Patient History <GAEL Issa - Last Filed: 12/16/22 18:02> Medical History (Updated 12/18/22 @ 00:01 by ) Healthy adult Social History Smoking Status: Never smoker Smoking Status: Never smoker Substance Use Type: does not use Exam <GAEL Issa - Last Filed: 12/16/22 18:02> Narrative Exam Narrative: Reviewed vitals signs and nursing notes. General: Pleasant, sitting upright, in no acute distress, well groomed, afebrile HEENT: symmetrical facial expressions, moist mucous membranes, neck is supple CV: regular rate and rhythm, warm extremities Respiratory: normal work of breathing, without tachypnea or hypoxia. GI: abdomen soft, nondistended, without CVA tenderness bilaterally. MSK: moves all extremities, no weakness, normal tone, ambulatory without deficit, no weakness, normal reflexes bilateral lower extremities, no grown paresthesia, nontender along lumbar and sacral spine to palpation, no step-offs, no exquisite tenderness, normal range of motion, mild soft tissue tenderness to the lumbar/sacral region to palpation. Skin: brisk capillary refill, without rash or wound Neuro: clear speech and normal cognition, A&O x3, GCS 15, no focal motor or sensation deficits Initial Vital Signs Initial Vital Signs: Vital Signs Temperature 97.9 F 12/16/22 14:29 Pulse Rate 83 12/16/22 14:29 Respiratory Rate 16 12/16/22 14:29 Blood Pressure 120/77 12/16/22 14:29 Pulse Oximetry 96 12/16/22 14:29 Oxygen Delivery Method Room Air 12/16/22 14:29 <Adeola Mejias DO - Last Filed: 12/25/22 01:56> Initial Vital Signs Initial Vital Signs: Vital Signs Temperature 97.9 F 12/16/22 14:29 Pulse Rate 83 12/16/22 14:29 Respiratory Rate 16 12/16/22 14:29 Blood Pressure 120/77 12/16/22 14:29 Pulse Oximetry 96 12/16/22 14:29 Oxygen Delivery Method Room Air 12/16/22 14:29 Course <GAEL Issa - Last Filed: 12/16/22 18:02> Orders Ordered: Discontinued Medications Ketorolac Tromethamine (Ketorolac 30 Mg/Ml Vial) 15 mg IM NOW ONE Stop: 12/16/22 16:45 Last Admin: 12/16/22 16:57 Dose: 15 mg Documented By: ARVIND Lidocaine (Lidocaine Patch 1 Each Adh..Patch) 1 each TOP NOW ONE Stop: 12/16/22 16:45 Last Admin: 12/16/22 16:57 Dose: 1 each Documented By: ARVIND Methocarbamol (Methocarbamol 500 Mg Tablet) 750 mg PO NOW ONE Stop: 12/16/22 16:45 Last Admin: 12/16/22 16:56 Dose: 750 mg Documented By: ARVIND Oxycodone/Acetaminophen (Oxycodone/Acetaminophen 5/325 Tablet) 1 tab PO NOW ONE Stop: 12/16/22 16:45 Last Admin: 12/16/22 16:56 Dose: 1 tab Documented By: ARVIND Prednisone (Prednisone 20 Mg Tablet) 60 mg PO NOW ONE Stop: 12/16/22 16:45 Last Admin: 12/16/22 16:56 Dose: 60 mg Documented By: ARVIND Vital Signs Vital signs: Vital Signs - 8 hr 12/16/22 14:29 Temperature 97.9 F Pulse Rate 83 Respiratory Rate 16 Blood Pressure 120/77 Pulse Oximetry 96 Oxygen Delivery Method Room Air <Adeola Mejias DO - Last Filed: 12/25/22 01:56> Orders Ordered: Discontinued Medications Ketorolac Tromethamine (Ketorolac 30 Mg/Ml Vial) 15 mg IM NOW ONE Stop: 12/16/22 16:45 Last Admin: 12/16/22 16:57 Dose: 15 mg Documented By: ARVIND Lidocaine (Lidocaine Patch 1 Each Adh..Patch) 1 each TOP NOW ONE Stop: 12/16/22 16:45 Last Admin: 12/16/22 16:57 Dose: 1 each Documented By: ARVIND Methocarbamol (Methocarbamol 500 Mg Tablet) 750 mg PO NOW ONE Stop: 12/16/22 16:45 Last Admin: 12/16/22 16:56 Dose: 750 mg Documented By: ARVIND Oxycodone/Acetaminophen (Oxycodone/Acetaminophen 5/325 Tablet) 1 tab PO NOW ONE Stop: 12/16/22 16:45 Last Admin: 12/16/22 16:56 Dose: 1 tab Documented By: ARVIND Prednisone (Prednisone 20 Mg Tablet) 60 mg PO NOW ONE Stop: 12/16/22 16:45 Last Admin: 12/16/22 16:56 Dose: 60 mg Documented By: ARVIND Vital Signs Vital signs: Vital Signs - 8 hr 12/16/22 14:29 Temperature 97.9 F Pulse Rate 83 Respiratory Rate 16 Blood Pressure 120/77 Pulse Oximetry 96 Oxygen Delivery Method Room Air MDM - Back Pain/Injury <GAEL Issa - Last Filed: 12/16/22 18:02> MDM Narrative Medical decision making narrative: Chief Complaint: low back pain Differential diagnoses considered but not limited to: disc injury/herniation, radiculopathy, muscular strain, epidural abscess, malignancy, spondyloarthropathy, acute fracture, urinary tract infection, osteoarthritis, degenerative disc disease, cauda equina, osteomyelitis, spinal stenosis, ligamental injury. I have reviewed the patient's vital signs and nursing notes as well as prior records if available. Prior Charts reviewed: Prior lumbar MRI from 12/03/2022 and chest CTA from 11/29/2022 My interpretation of Imaging: No imaging completed today patient's symptoms not acutely different and no new trauma Suspect likely musculoskeletal etiology and acute exacerbation of chronic low back pain. Patient's straight leg raise test was positive. No back pain red flags on history or physical. No history of IV substance use, or bony tenderness to palpation, no trauma, no bony tenderness to palpation, and are afebrile. No bowel or urinary incontinence or retention, no saddle anesthesia, no new/worsening distal weakness, decreased reflexes or foot drop. Pt is nontoxic appearing. Patient has soft tissue tenderness to palpation. Pt is neurovascularly intact distally, without decreased reflexes or strength, and without immunosuppression or evidence of infection, peritoneal signs, hypertensive crisis, incontinence, or meningeal signs. Patient's symptoms have been an exacerbation of previous symptoms with no new trauma. 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 Patient was given a course of steroids, hydrocodone for pain, topical lidocaine patches, methocarbamol use as needed, and understands to schedule follow-up with [facility] to be seen by Neurosurgery as well as Dr. Layne for possible steroid injection or other pain management. Patient's symptoms improved over duration of stay with above-stated therapies. He does not have groin paresthesia, is ambulatory without deficit, nontender along his lumbar and sacral spine to palpation, no history of IV substance abuse. Discharge diagnosis, return precautions and plan discussed with patient followed by verbalization of understanding. Social considerations that may affect disposition: none Questions are addressed and there is agreement with the plan and for follow-up with PCP and with Orthopedics for outpatient physical therapy and advanced imaging if indicated. Patient is appropriate for outpatient management. MIPS: This encounter doesn't have any diagnosis' associated with MIPS criteria. Discharge Plan Departure Patient Disposition: Home Clinical Impression: Acute exacerbation of chronic low back pain, Degenerative disc disease, lumbar, Anterolisthesis Speech abnormality Qualifiers: Speech disturbance type: unspecified speech disturbance Qualified Code(s): R47.9 - Unspecified speech disturbances Instructions: Herniated Disc, DI for Back Pain With Sciatica Activity Restrictions/Additional Instructions: *You have been diagnosed with a herniated disc at the L5-S1 level, associated annular fissure and anterolisthesis of L5-S1. I have referred you to Dr. Layne as well as Dr. Dalton Francois with Neurosurgery at [facility]. Please follow-up with them to determine whether or not you are a surgical candidate and if you would benefit from complicated pain management and possible steroid injection. I have given you hydrocodone to use as needed for pain, lidocaine patches to use every 12 hours, muscle relaxer to use every 8 hours as needed and 5 days of prednisone 40 mg daily to follow today dose. Please take that medication food and water. I have given you additional tabs of prednisone to use for future flare. I hope that you start feeling better soon. Please use Tylenol in addition to ibuprofen with food and water at home. Please take Prilosec daily to prevent extra acid production. Please call to schedule an appointment with Dr. Layne for pain management/evaluation for steroid injection and follow-up with Dr. FRANCOIS at [facility]. They have an office here in and [place]. Please use stool softener as pain pills can cause constipation and worsening pain. Stay hydrated, take your medications with food and water except for Prilosec- take this on an empty stomach. *What to do: *Please continue to take your regular medications as directed. [x ] New medication prescriptions sent to your pharmacy: [ [facility] [place]] [ ] New medication written as a paper prescription [ ] No new medications given *Please call and schedule follow up with your primary care provider in 2-3 days, at least for an update. Let them know you were seen in the Emergency Department for the above problem. We will electronically transmit a record of today's note if your PCP or specialist is in our system. *If you do not have a primary care provider please contact [phone] to establish care with one of the [facility] primary care providers. *Return to the Emergency Department for worsening symptoms, inability to keep liquids down, fever greater than 101F, chills, or other concerning symptom. Prescriptions: New hydrocodone-acetaminophen 7.5-325 mg tablet 1 tab PO Q8H PRN (Reason: pain) Qty: 14 0RF lidocaine 5 % adhesive patch,medicated 1 patch topical Q12HR PRN (Reason: pain) Qty: 30 0RF Rx Instructions: leave on most painful area for up to 12 hrs methocarbamol 750 mg tablet 750 mg PO TID PRN (Reason: muscle spasm) Qty: 30 0RF No Action valacyclovir 1 gram tablet 1,000 mg PO Q8H Qty: 21 0RF hydrocodone-acetaminophen 5-325 mg tablet 1 tab PO Q6H PRN (Reason: pain) Qty: 12 0RF ondansetron 4 mg tablet,disintegrating 4 mg PO Q8H PRN (Reason: nausea and vomiting) Qty: 10 0RF hydrocodone-acetaminophen 5-325 mg tablet 1 tab PO Q4-6H PRN (Reason: pain) Qty: 20 0RF cyclobenzaprine 10 mg tablet 10 mg PO TID PRN (Reason: muscle spasm) Qty: 14 0RF methylprednisolone [Medrol (Rubio)] 4 mg tablets,dose pack See Rx Instructions .ROUTE .COMPLEX Qty: 21 0RF Rx Instructions: orally per package directions Referrals: Shaka Layne DO [Physician] - Cha Francois MD [Physician] - Provider,Becki RASCON [Primary Care Provider] - Stand Alone Forms: Patient Portal/API <Adeola Mejias DO - Last Filed: 12/25/22 01:56> Cosign ED Attending Cosbeatriceature Attestation: I was immediately available in the department for consultation. Documentation has been reviewed.
[2022-12-16 18:03] VITALS: BP 136/83; PULSE 80; RESP 16; O2SAT 97
== END 2022-12-16 18:04 | disposition home or self-care (01) ==
PROVIDERS: Emergency Provider Nurse Practitioner Critical Care Medicine
DX: M54.50 Low back pain, unspecified (principal); M51.36 Other intervertebral disc degeneration, lumbar region; R47.9 Unspecified speech disturbances; M43.10 Spondylolisthesis, site unspecified
CPT/HCPCS: 96372; 99283; J1885

== ENCOUNTER 2023-02-21 18:09 | Emergency (ER) | payer OTHER, SELFPAY ==
--- NOTE | 2023-02-21 18:11 | ED_ITS ---
HPI - General Adult General Chief complaint: Back Pain/Injury Stated complaint: back pain Time Seen by Provider: 02/21/23 18:10 History of Present Illness HPI narrative: 32-year-old male nonsmoker with history of known and chronic back pain is here for ongoing pain. He denies any new trauma or injury, no fever or chills and takes no blood thinners. Denies any loss of control of bowel or bladder. He has been having trouble with lower extremity weakness for many months but denies any new issues on that front. He states that he went to his PCM today and was told to come here if Tylenol or Motrin were not helping. He has seen his spine surgeon as recently as this week and states that they are in the process of clearing him for a spinal fusion. Related Data Previous Rx's Medication Instructions Recorded valacyclovir 1 gram tablet 1,000 mg PO Q8H #21 tabs 09/22/19 hydrocodone 5 mg-acetaminophen 325 1 tab PO Q6H PRN pain #12 tabs 11/29/22 mg tablet ondansetron 4 mg disintegrating 4 mg PO Q8H PRN nausea and 11/29/22 tablet vomiting #10 tabs cyclobenzaprine 10 mg tablet 10 mg PO TID PRN muscle spasm #14 12/03/22 tabs hydrocodone 5 mg-acetaminophen 325 1 tab PO Q4-6H PRN pain #20 tabs 12/03/22 mg tablet methylprednisolone 4 mg tablets in See Rx Instructions PO .COMPLEX 12/03/22 a dose pack (Medrol (Rubio)) #21 ea hydrocodone 7.5 mg-acetaminophen 1 tab PO Q8H PRN pain #14 tabs 12/16/22 325 mg tablet lidocaine 5 % topical patch 1 patch topical Q12HR PRN pain #30 12/16/22 ea methocarbamol 750 mg tablet 750 mg PO TID PRN muscle spasm #30 12/16/22 tabs cyclobenzaprine 10 mg tablet 10 mg PO TID PRN muscle spasm #14 02/21/23 tabs hydrocodone 5 mg-acetaminophen 325 1 tab PO Q4-6H PRN pain #10 tabs 02/21/23 mg tablet Allergies Allergy/AdvReac Type Severity Reaction Status Date / Time No Known Drug Allergies Allergy Verified 02/21/23 18:25 Review of Systems Review of Systems Narrative: GENERAL: Denies chills, fatigue, malaise, fever, sweats. HEENT: Denies sinus pain, ear pain, sore throat, difficulty swallowing, dizziness. RESPIRATORY: Denies dyspnea, cough, wheezing, hemoptysis, sputum. CARDIOVASCULAR: Denies chest pain, palpitations, orthopnea, edema, GASTROINTESTINAL: Denies nausea, vomiting, abdominal pain, diarrhea, constipation, melena. : Denies dysuria, frequency, incontinence, hematuria, urinary retention. MUSCULOSKELETAL: See HPI SKIN: Denies rash, skin lesions, or other NEUROLOGIC: See HPI PSYCHIATRIC: No concerning psychosocial issues. 12 point review of systems is negative except for those stated above Patient History Medical History (Updated 02/21/23 @ 18:33 by Ta Naranjo DO) Healthy adult Social History Smoking Status: Never smoker Smoking Status: Never smoker Substance Use Type: does not use Exam Narrative Exam Narrative: GENERAL: [] year old patient appears stated age. Well-developed patient, in mild distress. HEAD: Atraumatic. Normocephalic. EYES: Pupils equal round and reactive. Extraocular motions intact. No scleral icterus. No injection or drainage. ENT: Nose without bleeding, purulent drainage. Throat without erythema, tonsillar hypertrophy or exudate. Airway patent. NECK: Trachea midline. Non tender CARDIOVASCULAR: Regular rate and rhythm without murmurs, gallops, or rubs. RESPIRATORY: Clear to auscultation. Breath sounds equal bilaterally. No wheezes, rales, or rhonchi. GASTROINTESTINAL: Abdomen soft, non-tender, nondistended. EXTREMITIES: No edema or joint tenderness. BACK: hydraulic press tender but free of any obvious external abnormalities. Patient exam notes decreased range of motion and muscle spasm, but no CVA tenderness, or vertebral point tenderness. There are no symptoms of cauda equina such as saddle anesthesia, and decreased reflexes, decreased sensation or strength.. NEURO: AOx3. SKIN: No rash or erythema of visible areas Initial Vital Signs Initial Vital Signs: Vital Signs Temperature 97.9 F 02/21/23 18:12 Pulse Rate 85 02/21/23 18:12 Respiratory Rate 16 02/21/23 18:12 Blood Pressure 151/67 H 02/21/23 18:12 Pulse Oximetry 96 10/24/23 18:12 Oxygen Delivery Method Room Air 02/21/23 18:12 Course Orders Ordered: Discontinued Medications Hydrocodone Bitart/Acetaminophen (Hydrocodone/Acet 5/325 Tablet) 1 tab PO NOW ONE Stop: 02/21/23 18:24 Last Admin: 02/21/23 18:32 Dose: 1 tab Ketorolac Tromethamine (Ketorolac 30 Mg/Ml Vial) 30 mg IM NOW ONE Stop: 02/21/23 18:25 Last Admin: 02/21/23 18:32 Dose: 30 mg Vital Signs Vital signs: Vital Signs - 8 hr 02/21/23 18:12 Temperature 97.9 F Pulse Rate 85 Respiratory Rate 16 Blood Pressure 151/67 H Pulse Oximetry 96 Oxygen Delivery Method Room Air Medical Decision Making MDM Narrative Medical decision making narrative: 32[] year old patient presents with known back issues and pain not controlled by Tylenol Motrin, primary sent him for stronger meds if needed Multiple etiologies for patient's symptoms considered including, but not limited to: [Lumbar spasm, versus spinal stenosis versus cauda equina versus epidural hematoma versus epidural abscess versus other] Prior Charts reviewed in our EMR Primary Historian: patient Patient's history and physical exam are reassuring, ongoing chronic pain not controlled by [id number] medications and sent by his PCP for stronger pain meds if needed. No new injury or trauma, no fever or chills, no use of anticoagulants. No loss of bowel or bladder, no increasing lower extremity weakness Patient's symptoms improved over duration of stay with above-stated therapies. Findings and discharge diagnosis discussed with patient/family followed by verbalization of understanding Return precautions discussed with patient/family whom verbalize understanding of diagnosis and plan Discharge Plan Departure Patient Disposition: Home Clinical Impression: Chronic back pain Instructions: DI for Low Back Pain Activity Restrictions/Additional Instructions: *You have been diagnosed with [acute on chronic low back pain] *What to do: *Please continue to take your regular medications as directed. [ x] New medication prescriptions sent to your pharmacy: [ [facility]] [ ] New medication written as a paper prescription [ ] No new medications given *Please follow up with your primary care provider in 2-3 days, call for an appointment. Let them know you were seen in the Emergency Department and that we ask that you be seen in follow up. We will electronically transmit a record of today's note if your PCP is in our system *If you do not have a primary care provider please contact the [facility] Resource line at [phone]. They will ask some questions about your medical history and help get you set up with a doctor in the community. *Return to Emergency Department if you should have any new, worsening or concerning symptoms, such as [fever greater than 101 F, shaking chills, worsening pain, loss of control of bowel or bladder, worsening weakness or other bothersome symptoms Prescriptions: New cyclobenzaprine 10 mg tablet 10 mg PO TID PRN (Reason: muscle spasm) Qty: 14 0RF hydrocodone-acetaminophen 5-325 mg tablet 1 tab PO Q4-6H PRN (Reason: pain) Qty: 10 0RF No Action valacyclovir 1 gram tablet 1,000 mg PO Q8H Qty: 21 0RF hydrocodone-acetaminophen 5-325 mg tablet 1 tab PO Q6H PRN (Reason: pain) Qty: 12 0RF ondansetron 4 mg tablet,disintegrating 4 mg PO Q8H PRN (Reason: nausea and vomiting) Qty: 10 0RF hydrocodone-acetaminophen 5-325 mg tablet 1 tab PO Q4-6H PRN (Reason: pain) Qty: 20 0RF cyclobenzaprine 10 mg tablet 10 mg PO TID PRN (Reason: muscle spasm) Qty: 14 0RF methylprednisolone [Medrol (Rubio)] 4 mg tablets,dose pack See Rx Instructions .ROUTE .COMPLEX Qty: 21 0RF Rx Instructions: orally per package directions hydrocodone-acetaminophen 7.5-325 mg tablet 1 tab PO Q8H PRN (Reason: pain) Qty: 14 0RF lidocaine 5 % adhesive patch,medicated 1 patch topical Q12HR PRN (Reason: pain) Qty: 30 0RF Rx Instructions: leave on most painful area for up to 12 hrs methocarbamol 750 mg tablet 750 mg PO TID PRN (Reason: muscle spasm) Qty: 30 0RF Referrals: Cristian Jansen DO [Primary Care Provider] - Stand Alone Forms: Patient Portal/API
[2023-02-21 18:12] VITALS: BP 151/67; PULSE 85; RESP 16; TEMP 36.6; O2SAT 96
[2023-02-21] MEDS: KETOROLAC 30 MG/ML VIAL IM (18:32)
[2023-02-21] MEDS: HYDROCODONE/ACET 5/325 TABLET 1 TAB PO (18:32)
== END 2023-02-21 18:58 | disposition home or self-care (01) ==
PROVIDERS: Emergency Provider Emergency Medicine; Family Provider Preventive Medicine Aerospace Medicine; PCP Preventive Medicine Aerospace Medicine
DX: M54.9 Dorsalgia, unspecified (principal)
CPT/HCPCS: 96372; 99283; J1885

== ENCOUNTER 2023-03-04 14:53 | Emergency (ER) | payer OTHER, SELFPAY ==
[2023-03-04] VITALS (10 sets, daily range): BP systolic 115–146; BP diastolic 70–87; PULSE 86–100; RESP 16–24; TEMP 37.2; O2SAT 94–96; BMI 32.5
--- NOTE | 2023-03-04 15:29 | ED.NEUROSD ---
HPI - Neuro Symptoms/Deficit General Chief Complaint: Neuro Symptoms/Deficit Stated Complaint: Lower back pain, chronic Time Seen by Provider: 03/04/23 15:19 Source: patient Mode of arrival: Wheelchair History of Present Illness HPI Narrative: Patient is a 32-year-old male who has chronic ongoing back pain has been seen here a handful of times he had an MRI did show [id number] disc bulge at L5-S1 with central disc extrusion presenting today with increasing left leg numbness and weakness with loss of urine. He was seen evaluated here February 21 with chronic back pain he was prescribed hydrocodone and Flexeril. He reports that normally he manages the pain he is already seen Dr. Means who had like to do fusion. This is not yet been done. He did receive in a steroid injection about 1 month ago. He reports that today symptoms are much worse. He denies any loss of bowel he feels like his penis is numb as well. Patient has a chronic stutter. On Anticoagulants: No Related Data Previous Rx's Medication Instructions Recorded valacyclovir 1 gram tablet 1,000 mg PO Q8H #21 tabs 09/22/19 hydrocodone 5 mg-acetaminophen 325 1 tab PO Q6H PRN pain #12 tabs 11/29/22 mg tablet ondansetron 4 mg disintegrating 4 mg PO Q8H PRN nausea and 11/29/22 tablet vomiting #10 tabs cyclobenzaprine 10 mg tablet 10 mg PO TID PRN muscle spasm #14 12/03/22 tabs hydrocodone 5 mg-acetaminophen 325 1 tab PO Q4-6H PRN pain #20 tabs 12/03/22 mg tablet methylprednisolone 4 mg tablets in See Rx Instructions PO .COMPLEX 12/03/22 a dose pack (Medrol (Rubio)) #21 ea hydrocodone 7.5 mg-acetaminophen 1 tab PO Q8H PRN pain #14 tabs 12/16/22 325 mg tablet lidocaine 5 % topical patch 1 patch topical Q12HR PRN pain #30 12/16/22 ea methocarbamol 750 mg tablet 750 mg PO TID PRN muscle spasm #30 12/16/22 tabs cyclobenzaprine 10 mg tablet 10 mg PO TID PRN muscle spasm #14 02/21/23 tabs hydrocodone 5 mg-acetaminophen 325 1 tab PO Q4-6H PRN pain #10 tabs 02/21/23 mg tablet gabapentin 300 mg capsule 300 mg PO BEDTIME #30 caps 03/04/23 prednisone 20 mg tablet 40 mg (2 x 20 mg) PO DAILY #10 tabs 03/04/23 Allergies Allergy/AdvReac Type Severity Reaction Status Date / Time No Known Drug Allergies Allergy Verified 02/21/23 18:25 Review of Systems Hematologic/Lymphatic On Anticoagulants: No Patient History Medical History (Updated 03/04/23 @ 18:30 by Shena Valencia DO) Healthy adult Social History Smoking Status: Never smoker Smoking Status: Never smoker alcohol intake frequency: 0-2 drinks per day Substance Use Type: does not use Exam Initial Vital Signs Initial Vital Signs: Vital Signs Temperature 99 F 03/04/23 15:13 Pulse Rate 100 H 03/04/23 15:13 Respiratory Rate 24 03/04/23 15:13 Blood Pressure 129/85 03/04/23 15:13 Pulse Oximetry 95 03/04/23 15:13 Oxygen Delivery Method Room Air 03/04/23 15:13 GENERAL: Alert pleasant 32-year-old and in no acute distress. HEENT: Head atraumatic,EOMI, pupils reactive, face symmetric, moist mucous membranes CARDIOVASCULAR: Regular rate and rhythm without murmurs, rubs or gallops. RESPIRATORY: Breath sounds equal bilaterally, no wheezes rales or rhonchi. EXTREMITIES: Normal range of motion, no clubbing or edema. Neurovascularly intact NEUROLOGICAL: Alert and oriented x4.Normal gait and speech. Cranial nerves II through XII grossly intact. Decreased sensation to sharp object in left leg Chronic stuttering no focal deficits SKIN: Warm, dry, no laceration, no petechiae, no rashes or lesions. Course Orders Ordered: Discontinued Medications Dexamethasone (Dexamethasone 10 Mg/Ml Vial) 10 mg IV NOW ONE Stop: 03/04/23 15:47 Last Admin: 03/04/23 16:15 Dose: 10 mg Documented By: LOS Gabapentin (Gabapentin 300 Mg Capsule) 300 mg PO NOW ONE Stop: 03/04/23 18:38 Last Admin: 03/04/23 18:47 Dose: 300 mg Documented By: LOS Ketorolac Tromethamine (Ketorolac 30 Mg/Ml Vial) 15 mg IV NOW ONE Stop: 03/04/23 17:15 Last Admin: 03/04/23 17:19 Dose: 15 mg Documented By: RL Vital Signs Vital signs: Vital Signs - 8 hr 03/04/23 15:13 03/04/23 15:24 03/04/23 15:24 Temperature 99 F Pulse Rate 100 H 100 H Respiratory Rate 24 19 Blood Pressure 129/85 129/85 Pulse Oximetry 95 96 Oxygen Delivery Method Room Air 03/04/23 15:30 03/04/23 15:31 03/04/23 15:31 Temperature Pulse Rate 100 H 98 H Respiratory Rate 17 20 Blood Pressure 120/83 Pulse Oximetry 95 95 Oxygen Delivery Method 03/04/23 16:00 03/04/23 16:00 03/04/23 16:30 Temperature Pulse Rate 94 H 86 Respiratory Rate 16 16 Blood Pressure 115/70 Pulse Oximetry 94 94 Oxygen Delivery Method 03/04/23 16:30 03/04/23 17:11 03/04/23 17:11 Temperature Pulse Rate Respiratory Rate Blood Pressure 119/75 146/79 H Pulse Oximetry 94 Oxygen Delivery Method MDM - Neuro Symptoms/Deficit Imaging Data MR lumbar: Radiologist's Impression: PROCEDURE: MR LUMBAR SPINE WO CON INDICATIONS: left leg weakness loss of urine TECHNIQUE: Noncontrast sagittal T1 spin echo and T2 fast echo, sagittal STIR, and T2 fast spin echo through the lumbar spine. In cases with scoliosis, additional coronal T2 fast spin echo may be performed. COMPARISON: [facility], CT, CT ABDOMEN PELVIS W CON, 11/29/2022, 9:07. [facility] [place], RF, LUMBAR SPINE INTERIAMINAR, 02/01/2023, 8:50. [facility], MR, MR LUMBAR SPINE WO CON, 12/03/2022, 14:12. [facility] [place], CR, XR LUMBAR SPINE WITH OBLIQUES PLUS FLEXION EXTENSION, 12/14/2022, 15:17. FINDINGS: Image quality: Excellent. Alignment and Curvature: There is minimal anterolisthesis at L5-S1. Associated bilateral pars defects are present at L5, which are better seen by CT. Bone Marrow: Marrow is of normal overall signal. No acute vertebral body compression fractures. Spinal Cord: Conus medullaris terminates at the L1 level. Visualized cord demonstrates normal signal and size. Paraspinous Soft Tissues: No paravertebral masses. T12-L1: Normal appearance. L1-L2: Normal appearance. L2-L3: The disc height and disk signal are well-preserved. Mild generalized disc bulge is seen. Mild bilateral neural foraminal narrowing is seen. No significant central canal narrowing is seen. When comparison is made with the prior images, these findings are similar. L3-L4: The disc height and disk signal are well-preserved. Mild to moderate disc bulge is seen, which is slightly eccentric to the right. Mild facet joint hypertrophy is seen. There is mild to moderate right-sided and mild left-sided neural foraminal narrowing. No significant central canal narrowing is seen. When comparison is made with the prior images, these findings are similar. L4-L5: The disc height is well-preserved. Loss of disc signal is seen at this level. Mild disc bulge is seen, with a central disc protrusion. There is a focal annular fissure seen posteriorly. Mild facet joint hypertrophy is seen. There is moderate right-sided and mild left-sided neural foraminal narrowing. Mild central canal narrowing is seen. Stable from the prior study. L5-S1: [id number]-[id number] loss of disc height and disc signal can be seen. Mild generalized disc bulge is seen. There is a mild central disc extrusion, with mild superior migration of the disc material. There is a focal annular fissure seen posteriorly. Mild facet joint hypertrophy is seen. Moderate bilateral neural foraminal narrowing is seen. No significant central canal narrowing is seen. Stable from the prior study. 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 Dictated by: [place] Rawls M.D. on 03/04/2023 at 17:09 [facility] Narrative Medical decision making narrative: Patient 32-year-old male with chronic ongoing back issues presents today with urinary incontinence left leg weakness. He has good rectal tone on exam. Lumbar spine shows stable disease no evidence of cauda equina. At this time off her gabapentin reports that he is previously taken gabapentin. Unsure if he had any sort of relief with that but seems reasonable to started again. He did receive dexamethasone here in the ED will start him on some steroids. I recommend outpatient follow-up supportive care. Never able to give urine sample here in the ED. Discharge Plan Departure Patient Disposition: Home Clinical Impression: Chronic back pain Instructions: Managing Chronic Low Back Pain Activity Restrictions/Additional Instructions: *You have been diagnosed with acute on chronic back pain *What to do: At this time her MRI does not show any concerning changes. *Continue to take medications as directed Prednisone 40 mg once a day for 5 days Gabapentin 300 mg at night *Follow up with your primary care provider in 2-3 days or call [phone] *Return to ER if you should have any new, worsening or concerning symptoms Prescriptions: New gabapentin 300 mg capsule 300 mg PO BEDTIME Qty: 30 0RF prednisone 20 mg tablet 40 mg PO DAILY Qty: 10 0RF No Action valacyclovir 1 gram tablet 1,000 mg PO Q8H Qty: 21 0RF hydrocodone-acetaminophen 5-325 mg tablet 1 tab PO Q6H PRN (Reason: pain) Qty: 12 0RF ondansetron 4 mg tablet,disintegrating 4 mg PO Q8H PRN (Reason: nausea and vomiting) Qty: 10 0RF cyclobenzaprine 10 mg tablet 10 mg PO TID PRN (Reason: muscle spasm) Qty: 14 0RF hydrocodone-acetaminophen 5-325 mg tablet 1 tab PO Q4-6H PRN (Reason: pain) Qty: 10 0RF hydrocodone-acetaminophen 5-325 mg tablet 1 tab PO Q4-6H PRN (Reason: pain) Qty: 20 0RF cyclobenzaprine 10 mg tablet 10 mg PO TID PRN (Reason: muscle spasm) Qty: 14 0RF methylprednisolone [Medrol (Rubio)] 4 mg tablets,dose pack See Rx Instructions .ROUTE .COMPLEX Qty: 21 0RF Rx Instructions: orally per package directions hydrocodone-acetaminophen 7.5-325 mg tablet 1 tab PO Q8H PRN (Reason: pain) Qty: 14 0RF lidocaine 5 % adhesive patch,medicated 1 patch topical Q12HR PRN (Reason: pain) Qty: 30 0RF Rx Instructions: leave on most painful area for up to 12 hrs methocarbamol 750 mg tablet 750 mg PO TID PRN (Reason: muscle spasm) Qty: 30 0RF Referrals: Cristian Jansen DO [Primary Care Provider] - Stand Alone Forms: Patient Portal/API
[2023-03-04] MEDS: DEXAMETHASONE 10 MG/ML VIAL IV (16:15)
--- NOTE | 2023-03-04 16:47 | DI.MRI.S_ITS ---
PROCEDURE: MR LUMBAR SPINE WO CON INDICATIONS: left leg weakness loss of urine TECHNIQUE: Noncontrast sagittal T1 spin echo and T2 fast echo, sagittal STIR, and T2 fast spin echo through the lumbar spine. In cases with scoliosis, additional coronal T2 fast spin echo may be performed. COMPARISON: [facility], CT, CT ABDOMEN PELVIS W CON, 11/29/2022, 9:07. [facility], RF, LUMBAR SPINE INTERIAMINAR, 02/01/2023, 8:50. [facility], MR, MR LUMBAR SPINE WO CON, 12/03/2022, 14:12. [facility] [place], CR, XR LUMBAR SPINE WITH OBLIQUES PLUS FLEXION EXTENSION, 12/14/2022, 15:17. FINDINGS: Image quality: Excellent. Alignment and Curvature: There is minimal anterolisthesis at L5-S1. Associated bilateral pars defects are present at L5, which are better seen by CT. Bone Marrow: Marrow is of normal overall signal. No acute vertebral body compression fractures. Spinal Cord: Conus medullaris terminates at the L1 level. Visualized cord demonstrates normal signal and size. Paraspinous Soft Tissues: No paravertebral masses. T12-L1: Normal appearance. L1-L2: Normal appearance. L2-L3: The disc height and disk signal are well-preserved. Mild generalized disc bulge is seen. Mild bilateral neural foraminal narrowing is seen. No significant central canal narrowing is seen. When comparison is made with the prior images, these findings are similar. L3-L4: The disc height and disk signal are well-preserved. Mild to moderate disc bulge is seen, which is slightly eccentric to the right. Mild facet joint hypertrophy is seen. There is mild to moderate right-sided and mild left-sided neural foraminal narrowing. No significant central canal narrowing is seen. When comparison is made with the prior images, these findings are similar. L4-L5: The disc height is well-preserved. Loss of disc signal is seen at this level. Mild disc bulge is seen, with a central disc protrusion. There is a focal annular fissure seen posteriorly. Mild facet joint hypertrophy is seen. There is moderate right-sided and mild left-sided neural foraminal narrowing. Mild central canal narrowing is seen. Stable from the prior study. L5-S1: Rrle-jr-[id number] loss of disc height and disc signal can be seen. Mild generalized disc bulge is seen. There is a mild central disc extrusion, with mild superior migration of the disc material. There is a focal annular fissure seen posteriorly. Mild facet joint hypertrophy is seen. Moderate bilateral neural foraminal narrowing is seen. No significant central canal narrowing is seen. Stable from the prior study. 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 Dictated by: [place] Rawls M.D. on 03/04/2023 at 17:09 Approved by: [place] Rawls M.D. on 03/04/2023 at 17:14
[2023-03-04] MEDS: KETOROLAC 30 MG/ML VIAL 15 MG IV (17:19)
[2023-03-04] MEDS: GABAPENTIN 300 MG CAPSULE PO (18:47)
== END 2023-03-04 18:54 | disposition home or self-care (01) ==
PROVIDERS: Emergency Provider Emergency Medicine; Family Provider Preventive Medicine Aerospace Medicine; PCP Preventive Medicine Aerospace Medicine
DX: M54.50 Low back pain, unspecified (principal); R32 Unspecified urinary incontinence
CPT/HCPCS: 36415; 72148; 96374; 96375; 99284; J1100; J1885

== ENCOUNTER → 2023-03-08 10:34 | Outpatient (CLI) | payer OTHER, SELFPAY ==
[2023-03-08 11:45] LABS: Add Manual Diff / Slide Review NO; Basophils Absolute Auto 0 /uL (0-100); Basophils Percent Auto 0.2 % (0-2); Eosinophils Absolute Auto 0 /uL (0-450); Eosinophils Percent Auto 0.3 % (2-4); Hematocrit 42.5 % (41-53); Lymphocytes Absolute Auto 1900 /uL (1100-4500); Lymphocytes Percent Auto 17.2 % (25-40); Mean Corpuscular HGB Conc 35.4 % (30-36); Mean Corpuscular Hemoglobin 31.3 PG (26-34); Mean Corpuscular Volume 88.6 fL (80-100); Monocytes Absolute Auto 600 /uL (0-900); Monocytes Percent Auto 5.4 % (3-14); Neutrophils Absolute Auto 8400 /uL (1500-7000); Neutrophils Percent Auto 76.9 % (50-75); Platelet Count 291 X10^3/uL (150-400); Red Cell Distribution Width 12.2 % (11.6-14.8)
[2023-03-08 12:09] LABS: BUN Creatinine Ratio 18.1 (6-22); Blood Urea Nitrogen 17 mg/dL (9-20); Carbon Dioxide 25 mmol/L (22-32); Chloride 104 mmol/L (98-107); Estimated Glomerular Filt Rate > 60 mL/min (>60); Glucose 115 mg/dL (70-100); HEMOLYSIS < 15 (0-50); Potassium 4.2 mmol/L (3.4-5.1); Sodium 139 mmol/L (137-145)
== END ==
PROVIDERS: Family Provider Preventive Medicine Aerospace Medicine; PCP Preventive Medicine Aerospace Medicine; Referring Provider Orthopaedic Surgery Orthopaedic Surgery of the Spine; Visit Provider Orthopaedic Surgery Orthopaedic Surgery of the Spine
DX: M54.00 Panniculitis affecting regions of neck and back, site unspecified (principal); Z01.812 Encounter for preprocedural laboratory examination
CPT/HCPCS: 36415; 80048; 85025

== ENCOUNTER 2023-03-27 11:32 | Inpatient (IN) | payer OTHER, SELFPAY ==
[2023-03-21 13:53] VITALS: BMI 33.9
[2023-03-27] VITALS (12 sets, daily range): BP systolic 115–148; BP diastolic 68–96; PULSE 86–105; RESP 12–26; TEMP 36.1–37; O2SAT 73–100; BMI 32.3
[2023-03-27] MEDS: LACTATED RINGERS 1,000 ML 100 ML IV ×2 (12:17→15:29)
--- NOTE | 2023-03-27 13:23 | PM.PREOP ---
Pre-operative Note Interval Note History & Physical reviewed/Exam performed by Physician: Yes Changes to H&P: No
[2023-03-27] MEDS: CEFAZOLIN 2 GM/100 ML PREMIX 100 ML IV ×2 (14:05→22:10)
--- NOTE | 2023-03-27 14:30 | SUR.OPER ---
Prone on spine table, head in foam head support, padded chest and pelvic supports, gel pad at knees, lower legs supported by pillows; nipples, genitalia and toes free of pressure, arms secured on foam padded arm boards at <90 degrees abduction. Tape over blanket at thigh secured to table.
[2023-03-27] MEDS: BUPIVACAINE 0.25% (PF) 60 ML, EPINEPHrine 0.15 MG INJ (14:50)
[2023-03-27] MEDS: BUPIVACAINE LIPOSOME 266 MG/20 ML VIAL INJ (14:50)
--- NOTE | 2023-03-27 16:29 | DI.RAD.S_ITS ---
PROCEDURE: XR LUMBAR SPINE 2-3V INDICATIONS: L5-S1 TLIF TECHNIQUE: 3 views of the lumbar spine were acquired. COMPARISON: None. FINDINGS: Intraoperative fluoroscopic views of L5-S1 TLIF IMPRESSION: Intraoperative fluoroscopic views of L5-S1 TLIF. Dictated by: Benjy Alvarez M.D. on 03/27/2023 at 16:19 Approved by: Benjy Alvarez M.D. on 03/27/2023 at 16:22
--- NOTE | 2023-03-27 16:37 | PM.OP.1 ---
Operative Date/Time/Diagnoses Date of procedure: 03/27/23 Time of procedure: 13:50 Pre-op diagnosis: 1. L5-S1 spondylolisthesis 2. L5-S1 spinal stenosis with radiculopathy Post-op diagnosis: same Procedure & Clinicians Procedure: 1. L5-S1 Postero-lateral and posterior interbody fusion 2. L5-S1 interbody cage placement. 3. L5-S1 decompressive laminectomy with bilateral facetecomies 4. L5-S1 Posterior non-segmental instrumentation 5. [place] of bone marrow from iliac crest 6. Utilization of microsurgical technique and operating microscope Same procedure as scheduled: Yes Indications: Patient has been having chronic back pain and worsening lumbar radiculopathy. Patient failed multiple conservative management with worsening pain in his lower back and weakness and numbness in his lower extremity correlating with his L5-S1 spondylolisthesis and foraminal stenosis. Patient has been having difficulty performing activity of daily living. After discussing risks benefits of treatment options, patient elected proceed with surgery. Surgeon: Cha Thomas Refractory Bricklayer: Annie Cho Click Yes if Unassisted: No Anesthesia Type: General Operative Notes Closure Type: primary Specimen(s): none sent Prosthetic devices, grafts, tissues, transplants, or devices: Globus revolve screws, Rise cage Estimated Blood Loss (mL): 50 Blood products transfused: none Procedure in detail: Patient was seen in the preoperative area. Risks and benefits of the surgery was discussed with the patient. Informed consent was obtained from the patient and placed in the chart. Surgical site was marked. Patient was taken to the operative room. General anesthesia was administered. Prophylactic antibiotic was given to the patient less than 30 min before the incision was made. Patient was placed into a prone position on the Amarjit table. Patient's back was then prepped and draped in the sterile fashion. Time-out was performed at this time. Using AP and lateral C-arm imaging the interval between L5-S1 was identified and marked on patient's back. A 2 inch incision 2 in from midline was made on the left side first. The fascia was incised in line with skin incision. Globus MARS retractors was placed inside the incision and docked onto the L5 lamina. Using microsurgical technique and operating microscope, a L5 laminectomy and L5-S1 facetectomy was performed using a Kerrison rongeur. Patient was found have severe lateral recess and neural foramen stenosis which was fully decompressed after the laminectomy facetectomy. More than 75% of the facets were removed during the process of decompression rendering L5-S1 level grossly unstable and required a fusion procedure at the same time. The laminectomy and facetectomy was performed in order to decompress patient's cauda equina as well as the nerve roots exiting at the L5-S1 level. The disc space at L5-S1 was identified. And a total diskectomy was performed at L4-5 level. The endplates were decorticated using a rasp and shaver. The total diskectomy and decortication was performed at L5-S1 level in order to to accomplish a L5-S1 fusion. The local bone from the laminectomy and facetectomy was saved for local bone grafting. After the total diskectomy and decortication was completed, DBM bone graft material was combined with local bone that was harvested earlier. At this time, a separate skin is incision was made over the iliac crest. A Jamshidi needle was inserted into the iliac crest through a separate skin incision. 5 cc of bone marrow aspiration was obtained through the separate skin incision using a Jamshidi needle from the iliac crest. The bone marrow aspiration was combined with local bone and the DBM bone grafting material. The bone grafting material was placed into the L5-S1 interbody space along with a expandable cage. The cage was expanded to its maximum height using the torque limiting screwdriver. At this time a mirror image incision was made on the right side. The fascia was incised in line with the skin incision. Globus MARS retractor was inserted and docked onto the L5-S1 posterolateral gutter. Using the power drill, posterior-lateral decortication was performed at L5-S1 level until bleeding cortical bone was identified. The remaining bone grafting material was placed into the L5-S1 posterior lateral gutter he order to accomplish posterolateral fusion at the L5-S1 level. Using the double C-arm technique, pedicle screws were placed into the L5-S1 pedicles bilaterally. This was done by placing the Jamshidi needle into the pedicles, then placing the guidewires over the Jamshidi needle, and finally placing the cannulated screws over the guidewires bilaterally. After the pedicle screws were placed, 2 titanium rods was locked into the heads of the pedicle screws using locking caps and torque limiting screwdriver. After all the hardware was placed, and confirmed with AP and lateral C-arm imaging, the wound was then irrigated with sterile normal saline and packed with Ray-Tess gauze for 3 min to accomplish hemostasis. After the gauze was removed the deep fascia was closed with #1 Vicryl suture. The subcutaneous layer was closed with 2-0 Vicryl. The skin was closed with skin lauri. Patient tolerated the procedure well. There were no complications. The Operation could not have been safely performed without compromising the technical result or length of the procedure, without the assistance of a skilled certified surgical technician. The certified surgical technician was medically necessary for proper positioning, retraction and manipulation of instruments, proper exposure, surgical preparation, and manipulation of tissue. Complications: none Post-operative Condition: stable Disposition: PACU Plan for aftercare: Admit to inpatient hospital
[2023-03-27] MEDS: HYDROMORPHONE 1 MG INJ IV ×2 (16:48→17:04)
[2023-03-27] MEDS: hydrOXYzine 50 MG/ML INJ 25 MG IM (16:49)
[2023-03-27] MEDS: LORazepam 2 MG/ML INJ 1 MG IV (16:55)
--- NOTE | 2023-03-27 17:04 | SUR.PHASEI ---
Shaking, moaning and grimacing/clenching has decreased in intensity and frequency. Patient rates pain 10/10.
[2023-03-27] MEDS: ONDANSETRON 4 MG/2 ML INJ IV (17:16)
--- NOTE | 2023-03-27 17:34 | SUR.PHASEI ---
Report called to
--- NOTE | 2023-03-27 18:05 | SUR.PHASEI ---
Patient transferred to the floor with a black backpack and belongings bag. O2 sat 87% on RA, deep breaths encouraged. O2 reapplied. Report given to Liz. MERCEDES quintero. Back dressing CDI. Patient moving all extremities independently and rated his pain 6/10.
--- NOTE | 2023-03-27 18:50 | PC.NURSE ---
Patient arrived from PACU at 1745. Per ACCESS CONTROL OFFICER patient had been very restless and 10/10-11/10 pain initially after surgery. He had been given 2 mg dilauded in PACU and 1 mg ativan. He is lethargic but awakens only briefly to answer a couple of questions and falls back to sleep. VSS, afebrile on 3 LNC . He awakens easily and immediately falls back to sleep. ACCESS CONTROL OFFICER and patient state that patient's is (emergecy contact/ friend) on patient's contact list. This RN attempted to call but it did not ring and VM had not bee set up. Unable to complete his admission assessment at this moment. Dressing to back is c/d/i. IVF LR running at 125ml/hr, q 2 turning, bed alarm on, call light in reach, pulse ox monitoring and frequent rounding. Patient is due to void by 8 pm, endorsed admission to oncoming RN.
[2023-03-27] MEDS: LACTATED RINGERS 1,000 ML 125 ML IV (18:53)
[2023-03-27] MEDS: DOCUSATE 100 MG CAPSULE PO (20:11)
[2023-03-27] MEDS: SERTRALINE 50 MG TABLET 100 MG PO (20:11)
[2023-03-27] MEDS: GABAPENTIN 300 MG CAPSULE PO (20:11)
[2023-03-27] MEDS: HYDROMORPHONE 0.5 MG INJ IV (20:11)
[2023-03-27] MEDS: CYCLOBENZAPRINE 10 MG TABLET PO (20:11)
[2023-03-27] MEDS: SENNOSIDES 8.6 MG TABLET 17.2 MG PO (20:11)
[2023-03-27] MEDS: hydrOXYzine pamoate 25 MG CAPSULE PO (20:11)
[2023-03-27] MEDS: OXYCODONE IR 10 MG TABLET PO (22:10)
[2023-03-28 00:43] VITALS: BMI 32.3
[2023-03-28] MEDS: OXYCODONE IR 10 MG TABLET PO ×3 (00:51→09:27)
[2023-03-28 02:02] VITALS: BP 142/82; PULSE 94; RESP 20; TEMP 36.6; O2SAT 96
[2023-03-28] MEDS: CEFAZOLIN 2 GM/100 ML PREMIX 100 ML IV (05:21)
[2023-03-28] MEDS: hydrOXYzine pamoate 25 MG CAPSULE PO (06:44)
[2023-03-28] MEDS: HYDROMORPHONE 0.5 MG INJ IV ×3 (06:47→10:38)
[2023-03-28 08:00] VITALS: BP 105/68; PULSE 93; RESP 18; TEMP 37.1; O2SAT 95
[2023-03-28] MEDS: ACETAMINOPHEN 325 MG TABLET 650 MG PO (08:12)
[2023-03-28] MEDS: DOCUSATE 100 MG CAPSULE PO (08:12)
--- NOTE | 2023-03-28 09:22 | OT.IP.EVAL ---
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 Mobility and Gait Pt did not use a device to walk with but limited for sitting and standing period of time due to his pain. Activities of Daily Living and IADL's Pt needing increased time to get dressed and had pain. Social History Household Members spouse,children Living Arrangements House Number of Stairs To Enter/Railing? Pt to stay on the main level. Pt has 10 steps with right rail, landing and then another 5 steps with right rail to get to the shower/bedroom. Home Environment Standard Height Toilet,Walk in Shower,Built-In Shower Seat Additional Social History Comment Pt's or mother in law to be present to assist pt for his needs. M2 OT-IP Current Condition Start: 03/28/23 11:00 Freq: Status: Active Protocol: Document 03/28/23 09:22 [facility] (Rec: 03/28/23 11:33 [facility] [id number]) Occupational Therapy Current Condition Current Condition Evaluation Date 03/28/23 Treatment Diagnosis S/P L5-S1 Diagnosis Onset Date 03/27/23 Post Operative Precautions Lumbar Precautions Log Roll,No Twisting,Limit Bending,Lifting Restriction of 10 lbs,Gait Belt above Incisional Area M3 OT- IP Subjective and Pain Start: 03/28/23 11:00 Freq: Status: Active Protocol: Document 03/28/23 09:22 [facility] (Rec: 03/28/23 11:33 [facility] [id number]) OT- Subjective Occupational Therapy Visit Type Type Initial Evaluation Visit Start Time : Visit Stop Time 10:09 Total Visit Minutes 47 Occupational Therapy Visit Comments Patient Comments Pt agreed to get up, use the toilet, and get dressed. Patient/Caregiver Goals TO go home. OT Pain Assessment Pain When Pain Assessed At Rest Pain Present Pain Present Pain Reported Location low back Intensity 6 Scale Used Numeric (0 - 10) M4 OT- IP ADL's Start: 03/28/23 11:00 Freq: Status: Active Protocol: Document 03/28/23 09:22 [facility] (Rec: 03/28/23 11:33 [facility] [id number]) OT CGF-[id number]-Fdahujj General Evaluation Self-Feeding Ability Independent OT ADL-Grooming General Evaluation Grooming Ability Independent OT ADL-Oral Care General Eval Oral Care Ability Independent OT ADL-Dressing General Eval Lower Body Dressing Ability Maximum Assistance Comments OT Dressing Comments Able to show pt use of LB dressing equipment so able to follow his precautions for LB dressing needs. OT ADL-Toileting Comments OT Toileting Comments Educated to stand with the FWW over the toilet. OT ADL-Bathing Comments OT Bathing Comments Pt states will shower at home. Pt states the built in shower seat is high enough to use. Also suggested the FWW can be used to help get into the shower and help to stand if needed. Pt would benefit from a hand held shower spray. M5 OT- IP IADL's Start: 03/28/23 11:00 Freq: Status: Active Protocol: Document 03/28/23 09:22 [facility] (Rec: 03/28/23 11:33 [facility] [id number]) OT-Instrumental Activities of Daily Living Deficits IADL Deficits Identified Deficits Home Safety Awareness Awareness of Need for Assistance at Home Good Awareness Ability to Problem Solve Emergency Able to Problem Solve Situations Medication Management Medication Management No Deficits Identified Money Management Money Management No Deficits Identified Meal Preparation Meal Preparation Caregiver Provides Assist Bail Bond Agent Bail Bond Agent Caregiver Provides Assist M6 OT- IP Functional Cognition Start: 03/28/23 11:00 Freq: Status: Active Protocol: Document 03/28/23 09:22 [facility] (Rec: 03/28/23 11:33 [facility] [id number]) Cognitive Factors Limiting Selfcare Function Cognitive Ability Level of Alertness Alert Patient Orientation Name,Age,Birthday,Month,Date, Year,Day of Week,Place, Situation Attention Span Ability Capable of Focused Attention, Capable of Sustained Attention Ability to Follow Commands Able to Follow Multi-Step Commands Memory Description No Deficits Noted Safety Awareness No Deficits Noted Cognitive Comments Cognitive Assessment Comments Pt is intact. OT- Vision and Hearing OT- Hearing Assessment OT- Hearing Assessment WFL OT- Vision Assessment Visual Acuity Glasses For Reading Visual Attentiveness WFL Occular Pursuits WFL Visual Convergence WFL Vision Assessment Comments Pt states his glasses are at home. M7 OT- IP Mobility and Balance Start: 03/28/23 11:00 Freq: Status: Active Protocol: Document 03/28/23 09:22 [facility] (Rec: 03/28/23 11:33 [facility] [id number]) OT- Bed Mobility Assessment Supine to Sit Supine to Sit Assist Contact Guard Assistance Scooting Scooting to Edge of Bed Standby Assistance Scooting Up and Down in Bed Standby Assistance OT-Transfer Assessment Sit to and From Stand Sit to and from Stand Standby Assistance,Contact Guard Assistance Transfers Transfer Ability Standby Assistance Technique Transfer Destination Bed,Chair Transfer Technique Stand Step Pivot Devices Transfer Assistive Devices Gait Belt,Front Wheeled Walker Comments Mobility Comments CGA to stand and educated best to push up from the bed versus grab the fww for safety . Able to practice and pt able to grab the FWW with right hand and push up from the bed with left hand seems to work the best for the pt at this time. Pt is very heavy handed on the FWW. Able to get orders for a FWW for pt. OT- Balance Assessment Sitting Balance and Reactions Static Sitting Balance Ability Normal Dynamic Sitting Balance Ability Good Standing Balance and Reactions Static Standing Balance Ability Good Dynamic Standing Balance Ability Fair M9 OT- IP Assessment and Plan Start: 03/28/23 11:00 Freq: Status: Active Protocol: Document 03/28/23 09:22 [facility] (Rec: 03/28/23 11:33 [facility] [id number]) OT Summary Assessment and Plan Potential Rehabilitation Potential Excellent Analytic Complexity at Evaluation Low Summary OT Impairments Pain,Strength,Balance, Functional Mobility,Dressing, Toileting,Bathing,Toilet Transfers,Shower Transfers, Activity Tolerance Progress Towards Goals Progressing Toward Goals Assessment Summary Pt low complexity and main barriers are pain and steps. Able to show pt LB dressing equipment and techniques to help follow his back precautions for ADL and mobility needs. Pt will have his and mother in law to assist with his needs at home. Able to request orders for a FWW for pt. Goals Dressing Goal Independent,Primary School Teacher,Sock Aid Toileting Goal Independent Bathing Goal Independent Toilet Transfer Goal Independent Shower Transfer Goal Independent Days to Meet Goals 5 Frequency of Treatment Frequency Of Treatment Once a Day Treatment Plan OT Treatment Plan ADL Training,Functional Mobility,Patient/Family Education,Discharge Planning Discharge Recommendations OT Discharge Recommendations Home with Assistance Transportation Needs at Discharge Private Vehicle
--- NOTE | 2023-03-28 10:29 | PT.IIE ---
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
--- NOTE | 2023-03-28 10:38 | PT.IIE ---
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) Physical Therapy Inpatient Evaluation/Re-Eval M2 PT-IP Current Condition Start: 03/28/23 10:28 Freq: NEEDED Status: Active Protocol: Document 03/28/23 10:29 KJ (Rec: 03/28/23 10:38 KJ [id number]) Physical Therapy Current Condition Current Condition Evaluation Date 03/28/23 Treatment Diagnosis impaired mobility Onset Date 03/27/23 M3 PT-IP Subjective Start: 03/28/23 10:28 Freq: NEEDED Status: Active Protocol: Document 03/28/23 10:29 KJ (Rec: 03/28/23 10:38 KJ [id number]) Subjective Physical Therapy Visit Type Type Initial Evaluation Visit Start Time 10:11 Visit Stop Time 10:29 Total Visit Minutes 18 Notes Initial evaluation, education on safety during mobility, education on movement precautions Physical Therapy Visit Comments Patient Comments Still having pain after administration of pain medications, now 6-11/07. Patient Goals To go home today Therapy Pain Assessment Pain When Pain Assessed At Rest Pain Present Pain Present Pain Reported Location low back Intensity 6 Scale Used Numeric (0 - 10) Description Aching Pain Behaviors Facial Grimacing,Guarding Pain Management Techniques Re-positioning,Timing of Activity with Medications M4 PT-IP Mobility and Gait Start: 03/28/23 10:28 Freq: NEEDED Status: Active Protocol: Document 03/28/23 10:29 KJ (Rec: 03/28/23 10:38 KJ [id number]) PT-Bed Mobility Assessment Rolling Type of Rolling Log Rolling,Roll to Left Level of Assist Minimal Assistance Supine to Sit Supine to Sit Contact Guard Assistance PT-Transfer Assessment Sit to and From Stand Sit to and from Stand Contact Guard Assistance Equipment Transfer Assistive Device Gait Belt Orthotic/Prosthetic Devices or Brace: No Transfers Transfer Destination Chair Transfer Technique Stand Pivot Transfer Ability Level of Assist Contact Guard Assistance Gait Assessment Gait Gait Assistance Required: Contact Guard Assist Distance (Feet) 50 Assistive Devices Assistive Device Gait Belt,Front Wheeled Walker Orthotic/Prosthetic Devices or Brace: No Gait Deviations General Gait Pattern Decreased Stride Length,Narrow Based Gait Factors Limiting Gait Function Factors Limiting Gait Function Pain Comments Gait Comments Guarded ambulation PT-Balance Assessment Sitting Balance and Reactions Static Sitting Balance Ability Good Dynamic Sitting Balance Ability Good Standing Balance and Reactions Static Standing Balance Ability Good Dynamic Standing Balance Ability Good Device Used fww M5 PT-IP Objective Assessments Start: 03/28/23 10:28 Freq: NEEDED Status: Active Protocol: Document 03/28/23 10:29 KJ (Rec: 03/28/23 10:38 KJ [id number]) Orientation Orientation/Cognition Level of Alertness Alert Orientation Name,Birthday,Situation Safety Awareness Understands Safety Issues Memory Description No Deficits Noted Comments pt w/stutter Gross Range of Motion Lower Extremity ROM Assessment Bilaterally Impaired Impairments Decreased knee ext bilat, limited by pain in back Strength Lower Extremity Strength Hip guarded Knee 5/5 bilat Ankle 5/5 bilat M6 PT-IP Treatment Start: 03/28/23 10:28 Freq: NEEDED Status: Active Protocol: Document 03/28/23 10:29 KJ (Rec: 03/28/23 10:38 KJ [id number]) Physical Therapy Treatment Education Education Provided Precautions,Safety Equipment Issued Equipment Type and Company by OT M7 PT-IP Assessment and Plan Start: 03/28/23 10:28 Freq: NEEDED Status: Active Protocol: Document 03/28/23 10:29 KJ (Rec: 03/28/23 10:38 KJ [id number]) PT Summary Assessment and Plan Potential Rehabilitation Potential Excellent Status of Condition at Evaluation Stable Summary Impairments Pain,ROM,Strength,Transfers, Gait,Activity Tolerance Progress Towards Goals Progressing Toward Goals Assessment Summary Pt at day one post op with pain and guarded movement Goals Bed Mobility Goal Independent Transfer Goal Independent Gait Goal Independent Gait Distance 250' Days to Meet Goals 3 Frequency of Treatment Frequency Of Treatment Once a Day Treatment Plan Physical Therapy Treatment Plan Bed Mobility Training,Transfer Training Precautions Lumbar Precautions Log Roll,No Twisting,Limit Bending,Lifting Restriction of 10 lbs,Gait Belt above Incisional Area Recommendations To Nursing Amount of Assist Needed Standby Assistance Discharge Recommendations PT Discharge Recommendations Home with Assistance
--- NOTE | 2023-03-28 12:20 | PC.NURSE ---
Patient is A&OX4. VSS, afebrile on RA. He is cleared by PT/OT to discharge home today. He denies numbness and tingling to BLE's. He ambulates with SBA using FWW. He reports pain is tolerable on prn pain medications. Dressing changed to back, no drainage noted. Aguila c/d/i. Patient verbalizes understanding of site care and keeping incision dry, s/sx of infection, activity limitations, medications as well as follow up appointment. He is escorted to entrance to meet friend in private vehicle for transport home this a.m. at 11:20 a.m.
--- NOTE | 2023-03-28 12:58 | CM.DANOTE ---
Brief DCP Assessment Note Patient is a 32yo M here following TLIF with Dr. Thomas on 03.27.23 PCP Cristian Paizare prime and self pay,. SUPERVISOR RIDES reviewed EMR. PT/OT rec home with assistance. PT/OT requested order for walker for home use, SUPERVISOR RIDES placed order. Patient left prior to being seen by this author. Per chart review, patient is indep with ADLs at baseline. Per nurse note, patient left with friend to transport home. Plan: patient d/c today home with assistance from friend. No CM needs identified. JERAD Hitchcock Discharge Planning/Care Management CM Discharge Assessment Start: 03/28/23 12:57 Freq: Status: Discharge Protocol: Document 03/28/23 12:58 SL (Rec: 03/28/23 12:58 SL [id number]) Discharge Planning Assessment Assigned Ecclesiastical Worker JERAD Casas Advance Directives? No History Provided By Medical Record Prior Living Arrangements House Is patient alert and oriented? Yes Comment hospital provided walker Barriers to Discharge No Discharge Plan Home Transportation Arrangement friend in POV Referrals Initiated None needed Whiteboard Updated in Patient Room with Yes name and ext. # of Ecclesiastical Worker Review Status In Process Next Review Type Continued Stay Review Pre-Anesthesia Assessment Start: 03/21/23 13:53 Freq: Status: Complete Protocol: Document 03/21/23 13:53 CAB (Rec: 03/21/23 14:30 CAB [id number]) Pre-Anesthesia Assessment Preferred Name Prabhakar Patient Information Reviewed Via Phone Assessment Assessment Completed With Patient Diagnostic Results BMP/CMP,CBC,EKG Comment Lab/EKG @ Primary Care Provider Amado Mike Comment PCP visit 02/21/23 scanned Seen Specialist in Last 12 Months Yes Specialist Seen Orthopedist,Other Comment Neurology - clearance form 03/06/23 scanned Primary Language Albanian Banking Representative Required No Height 172.72 cm Weight 101.151 kg Body Mass Index (BMI) 33.9 Hearing Ability Normal Visual Impairment No Limitations Visual Assist None Dentition Type Teeth, Natural Present Barriers to Learning None Hx Anesthesia Reactions No Hx Family Anesthesia Reaction No Hx Malignant Hyperthermia No Hx Blood Transfusions No Anesthesia Review Requested No Supervisor Cook House No alcohol intake current alcohol intake frequency holidays/special occasions only Smoking Status Never smoker Substance Use Type does not use Pain Present Pain Reported Musculoskeletal Symptoms Abnormal Gait,Back Pain, Difficulty Walking,Numbness, Radiating Pain into Limb, Tingling History of Falling (Recent or History of Yes ) Patient is completely paralyzed or No completely immobile Mental Status Oriented to own ability Is patient on oxygen? No Does patient have BUCKLEY/SOB No Hx Sleep Apnea No Currently Taking a Beta Anabela No Hx Chest Pain No Hx SOB No Hx Syncope or Dizziness No Anti-Coagulant Therapy No Has a Cured Meat Packing Supervisor No Cardiac Testing No Hx Pacemaker/ICD No Pacemaker Rep Required? No Cardiac Clearance Received Not Applicable Diet Type At Home Regular Dysphagia No Gastrointestinal Symptoms Reflux Urinary Catheter Present No Hx Urinary Self Catheterization No Diabetes No Hx Drug Resistant Organism No Presence of External or Internal Medical No Devices Received a COVID vaccine? Yes Received all doses? No Marital Status Lives With spouse,children Current Living Arrangements House Number of Floors (Floors) Two Floors Support System Spouse Does the Patient Have Assistance After Yes Surgery Patient Discharge Plan Description Return Home Comment Pt advised at least one day length of stay per surgeon Feels Safe in Current Environment Yes Been Physically Hurt or Threatened By a No Person in Current Environment Do you have thoughts of harming yourself None or others? Are you currently considering suicide? No Do you have a plan to hurt yourself or No Plan others? Do You Have Any Spiritual Beliefs That No May Affect Your HC Choices? Do You Have Any Cultural Practices That No May Affect Your HC Choices? Comment Caodaism Who Can We Speak to About Patient's Care Family, friends Identifying Code for Release of Patient Declines to issue Information Health Care Proxy/Next of Kin Llaa () Health Care Proxy Emergency Contact Name Lala () Emergency Contact Advance Directives? No Power of Commercial Agent No PAC Instructions Durable medical equipment, Medications to take/avoid, Nasal antibiotic,No ETOH/ petroleum product on skin DOS, NPO,Post-op transportation,Pre -surgical wash,Sturdy shoes/ comfortable clothes,Do not bring valuables and remove jewelry
--- NOTE | 2023-03-28 14:07 | P.DS_ITS ---
History of Present Illness History of Present Illness Date Patient Seen: 03/28/23 Time Patient Seen: 07:30 Chief complaint: Back pain Narrative: Patient states his pain is [id number]. Denies fever or chills. No nausea or vomiting. Patient has been up out of bed. Patient able to urinate on his own. Patient has assistance at home. Discharge Providers Provider Date of admission: 03/27/23 11:32 Discharge Date: 03/28/23 Primary care physician: Cristian Jansen DO Consults: 03/27/23 17:53 Consult to Occupational Therapy Evaluate & Treat Comment: Physician Instructions: Evaluate and treat Consult to Physical Therapy Evaluate & Treat Comment: Physician Instructions: Evaluate and Treat 03/28/23 10:11 Consult to Occupational Therapy Evaluate & Treat Comment: Physician Instructions: FWW for home use Discharge provider: Ronni Mace PA-C Summary Hospital Course Discharge Diagnosis: 1. L5-S1 spondylolisthesis 2. L5-S1 spinal stenosis with radiculopathy Hospital Course: 1. L5-S1 Postero-lateral and posterior interbody fusion 2. L5-S1 interbody cage placement. 3. L5-S1 decompressive laminectomy with bilateral facetecomies 4. L5-S1 Posterior non-segmental instrumentation 5. [place] of bone marrow from iliac crest 6. Utilization of microsurgical technique and operating microscope Same procedure as scheduled: Yes Indications: Patient has been having chronic back pain and worsening lumbar radiculopathy. Patient failed multiple conservative management with worsening pain in his lower back and weakness and numbness in his lower extremity correlating with his L5-S1 spondylolisthesis and foraminal stenosis. Patient has been having difficulty performing activity of daily living. After discussing risks benefits of treatment options, patient elected proceed with surgery. Surgeon: Cha Thomas Wired Music Operator: Annie Cho Click Yes if Unassisted: No Anesthesia Type: General Operative Notes Closure Type: primary Specimen(s): none sent Prosthetic devices, grafts, tissues, transplants, or devices: Globus revolve screws, Rise cage Estimated Blood Loss (mL): 50 Blood products transfused: none Patient admitted to the hospital for the above-mentioned procedure. Patient consented to the same. Patient underwent L5-S1 fusion March 27, 2023. Patient back in his room recovering well as in stable condition. Patient has been out of bed. Patient urinating on his own. Patient will be discharged home today after physical therapy if safe for home environment. Exam Vital Signs (past 8 hours): - 03/28/23 08:00 Temperature 98.8 F Pulse Rate 93 H Respiratory Rate 18 Blood Pressure 105/68 Pulse Oximetry 95 Oxygen Flow Rate 0 Oxygen Delivery Method Nasal Cannula Oxygen Flow Rate 0 Narrative Exam Narrative: Pleasant 32-year-old male resting comfortably in bed in no apparent distress. Motor functions intact bilateral lower extremities. Sensation grossly intact to light touch bilateral lower extremities. Const General: cooperative and comfortable Nutritional Appearance: average body habitus Orientation: oriented x3 Resp Effort & Inspection: normal respiratory effort and able to speak in complete sentences [facility] Medical History Lumbar foraminal stenosis GERD (gastroesophageal reflux disease) Stuttering (07/2022) Healthy adult Surgical History Hx of hand surgery History of ankle surgery Social History household members: spouse and children Smoking Status: Never smoker alcohol intake: current Discharge Assessment & Plan Assessment and Plan Assessment: Patient progressing as expected status post L5-S1 fusion Plan of Treatment: Mobilize with physical therapy, limit bending, twisting, lifting Multimodal pain management Follow up in Orthopedics 2 weeks Discharge home today after physical therapy. Discharge Plan Discharge Plan Patient Disposition: Home Discharge orders & Medications Prescriptions: New acetaminophen 325 mg Tablet 650 mg PO Q6H PRN (Reason: Fever/Mild Pain (1-3)) Qty: 60 0RF oxycodone 5 mg Tablet 5 mg PO Q3HR PRN (Reason: Pain, Moderate (4-6)) Qty: 40 0RF Continued cyclobenzaprine 10 mg tablet 10 mg PO TID PRN (Reason: muscle spasm) Qty: 14 0RF gabapentin 300 mg capsule 300 mg PO BEDTIME Qty: 30 0RF sertraline 100 mg Tablet 100 mg PO BEDTIME Follow up/Referrals: Cristian Jansen DO [Primary Care Provider] - Cha Thomas MD [Physician] - As previously scheduled (Follow up w/ Jose Antonio Webster PA-C, on 04/14/2023 @ 10:30 am at [facility] in [place].) Diet/Activity/Treatments Diet: Diet as Tolerated Activity: No deep bending or twisting at the waist. No lifting more than 10 pounds. Cold/Heat Therapy: Heating pad to low back as needed for pain. Skin/Wound/Dressing Care Report to your healthcare provider any signs of infection, such as:: chills, fever, night sweats, unusual drainage and unusual redness Dressing: May shower. Keep dressing as dry as possible. If dressing becomes wet or dirty, may remove and replace with clean, dry gauze. No bathing or otherwise soaking incisions. Do not apply any creams, lotions, or ointments to incisions. Visit Report/Discharge Packet Instructions: DI for Prescription Opioid Use, DI for Transforaminal Lumbar Interbody Fusion Stand Alone Forms: Patient Portal/API, Stroke Signs & Symptoms, Surgery Discharge Discharge Data Primary Care Provider: Cristian Jansen
== END 2023-03-28 11:20 | disposition home or self-care (01) | DRG 455 ==
PROVIDERS: Admitting Provider Orthopaedic Surgery Orthopaedic Surgery of the Spine; Family Provider Preventive Medicine Aerospace Medicine; PCP Preventive Medicine Aerospace Medicine; Referring Provider Orthopaedic Surgery Orthopaedic Surgery of the Spine; Visit Provider Orthopaedic Surgery Orthopaedic Surgery of the Spine
PROC: 0SG30AJ Fusion of Lumbosacral Joint with Interbody Fusion Device, Posterior Approach, Anterior Column, Open Approach (ICD-10-PCS; principal; 2023-03-27 12:45)
DX: M43.17 Spondylolisthesis, lumbosacral region (principal); M48.07 Spinal stenosis, lumbosacral region; M47.816 Spondylosis without myelopathy or radiculopathy, lumbar region; M47.817 Spondylosis without myelopathy or radiculopathy, lumbosacral region; M54.17 Radiculopathy, lumbosacral region
CPT/HCPCS: 72100; 76000; 97161; 97165; 97535; C1713; C1831; C9290; J0171; J0690; J1100; J1170; J2060; J2250; J2405; J2704; J3010; J3410

== ENCOUNTER 2023-08-02 09:45 | Outpatient (RCR) | payer OTHER, SELFPAY ==
--- NOTE | 2023-07-24 13:55 | ST.OPIE ---
Visit Care Team Role Provider Type Cristian Jansen DO Family Provider Non-Staff Primary Care Provider Specialty: Medical Address: [address] [place] [address], [facility], [place], [address] Email: Amado Mike MD Attending Provider Non-Staff Referring Provider Specialty: Family Practice Address: [facility], Fax: Email: Speech-Language Pathology Initial Evaluation SILHOUETTE ARTIST Fluency Evaluation Start: 07/19/23 08:59 Freq: Status: Active Protocol: Document 07/19/23 08:59 CG (Rec: 07/19/23 09:01 CG [id number]) Fluency Evaluation Session Time Visit Start Time 09:00 Visit Stop Time 09:35 Total Visit Minutes 35 Visit Information Visit Number 1 Insurance Information Referral Referring Physician Amado Chao Reason for Referral dysfluency History Patient History Prabhakar Noel is a 32-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 He presents to this clinic for an evaluation speech fluency due to acute- onset dysfluency following an intiating neurologic event in July 2022. Prabhakar was previously seen at this clinic for an evaluation and treatment of fluency, but treatment had to be discontinued due to Prabhakar undergoing major spinal surgery. 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 Prabhakar stated that the initiating event triggering multiple ongoing neurological symptoms occurred in July 2022. He states he was completing a physical training exercise for training in [place] when he began to feel that his legs were not working properly. After being evaluated by personnel on site, an ambulance was called. In the emergency room, he developed left sided hemiparesis including left sided facial droop. Additionally, at this point he began experiencing speech disturbances and states I couldn't even get one word out. Once these symptoms developed, code stroke was called and he was given TPA. He states that after TPA was administered, he began to be able to speak in sentences again, but with a severe stutter. The stutter has been ongoing since it began during this event. His stutter is characterized by dysfluencies at the beginnings of words, which are consistent across words within a sentence and consistent across contexts (phone, work, home, etc). His stutter also presents in automatic speech tasks. During singing, his dysfluency resolves. After code stroke was called, Prabhakar was admitted to the hospital in [place], where he had a normal CT, MRI, and EEG despite ongoing symptoms. In addition to ongoing dysfluency, Prabhakar ongoing left sided numbness and weakness. He also states that he occasionally has difficulty initiating the swallow reflex and will experience a couple false starts before he is able to re-attempt initiating that motor pattern. Once the swallow is initiated, he states he has no difficulty with getting food or liquid down. Prabhakar does endorse that there were multiple outside stressors occuring near the time of the onset of the suspected stroke (including closing on a house, of a family member, cancer diagnosis in another family member). 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 He does not believe that stress is related to his ongoing neurological symptoms . He does not have any previous significant psychological history or diagnoses. After his suspected stroke in July, Prabhakar attended a few sessions of speech therapy with [facility] (unclear if in [place], [place] or [place], [place]) , where he and the SILHOUETTE ARTIST trialed delayed auditory feedback in addition to easy onset/light contact strategies in an attempt to remediate dysfluency. Melodic intonation therapy was also trialed. He states that delayed auditory feedback was discontinued as it did not prove beneficial. He is unsure whether melodic intonation and easy onset/ light contact were helpful for him because he had to cancel multiple appointments due to the distance to attend, and discontinued speech therapy at [facility] after a short time. As of January of 2023, Prabhakar also saw a neuropsychologist who further supported the diagnosis of functional neurologic disorder. Prabhakar attended speech therapy at this clinic from December to March of last year before discontinuing tx due to surgery. Over the course of treatment, he had begun using fluency enhancing techniques such as stretchy speech with friends and loved ones. He stated that this did improve his fluency, but felt unnatural. His fluency also tended to fluctuate depending on outside stressors in his life, including of family members, conflict with adult siblings, etc. Since his surgery, Prabhakar reports that his fluency had remained relatively stable ( severe in most cases, decreased at home) but that it became far more severe again starting in May after he learned that his mother had been diagnosed with leukemia. He states that he has started seeing behavioral health as of the last month, but feels it is too soon to say whether therapy has been helpful for him. Prabhakar wants to re-incorporate regular practice of fluency shaping techniques in order to increase fluency despite outside stressors impacting his speech production. - Background Family History Family History of Persistent Stuttering No Family History of Recovered Stuttering No Length of Time Since Stuttering Began 11 months Changes in Stuttering Since Onset Fluctuates slightly based on stressors Patient Expression Emotional Response to Stuttering Awareness of stuttering, Frustration about speaking Describe Prabhakar is highly aware of his stuttering given that it is a completely new speech pattern for him that only occured after his neurologic event. He stated that he did exhibit some secondary behaviors when his stuttering first started, but was able to stop himself from performing those behaviors after he was given information from [facility] SILHOUETTE ARTIST that secondary behaviors can exacerbate stuttering. 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 Therefore, since he is unable to communicate quickly and efficiently, he is unable to perform his job and remains on limited duty status with the [employer]. He states that he is in the process of medical discharge and is accepting of the fact that he will almost certainly never fly again. Patient History Teased About Stuttering No Discussed Stuttering with Family/Friends Yes Only Austrian Speaking Yes - Stuttering/Speech/Language Previosly Assessed for Speech/Language Yes: [facility], this clinic Concerns Describe Previous fluency therapy at [facility] clinic Previous Speech/Language Therapy Yes Previous Therapy Results See pt history Fluency In Situations At Home Always At School Always New Situations Always Fluency Affecting Overall Communication At Home Always At School Always In New Situations Always - Assessment Behavioral Assessment Test Administered Fluency count/fluency sample; patient interview Results Prabhakar was observed to have 21 dysluencies within one minute of speech. Approximately every 2-3 words was stuttered. Types of dysfluencies included sound repetitions, syllable repetitions, and whole-word repetitions. No physical tension or secondary behaviors were noted. Prabhakar presents with severe neurogenic stuttering which was presumably caused by the same neurologic event that is causing his other neurologic symptoms; however, in the absence of any medical indication of neurologic injury, the pt's symptoms are most consistent with functional neurologic disorder /conversion disorder. Disfluency Rate 21 instances/minute Secondary Behaviors No secondary behaviors noted. Physical Tension Other Describe No physical tension noted. Prognosis Prognosis Good Based on Negative prognostic indicators : unclear etiology and unclear medical treatment for underlying etiology, limited success with previous speech therapy Positive prognostic indicators : age, high prior level of function, family support, high motivation, high cognitive level Therapy Goals Short Term Goals 1. Pt will benefit from education regarding principles of neuroplasticity in order to increase buy-in with therapeutic tasks and guide treatment plan. 2. Pt will complete speech prolongation and/or melodic intonation tasks in order to produce a 6-syllable phrase with no dysfluencies observed. 3. Pt will demonstrate the use of fluency shaping and stuttering modification techniques to produce short phrases (2-3 words) without any instances of dysfluency. Snf Goals Pt will demonstrate reduced instances of dysfluency to 10% of syllables stuttered or fewer based on fluency count of at least 100 syllables. Recommendations Suggested Referrals Phychologist
--- NOTE | 2023-07-24 13:55 | ST.OPPOC ---
Physical, Occupational & Speech Therapy At [facility] Visit Care Team Role Provider Type Cristian Jansen DO Family Provider Non-Staff Primary Care Provider Address: [facility] 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 He presents to this clinic for an evaluation speech fluency due to acute- onset dysfluency following an intiating neurologic event in July 2022. Prabhakar was previously seen at this clinic for an evaluation and treatment of fluency, but treatment had to be discontinued due to Prabhakar undergoing major spinal surgery. 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 Prabhakar stated that the initiating event triggering multiple ongoing neurological symptoms occurred in July 2022. He states he was completing a physical training exercise for training in [place] when he began to feel that his legs were not working properly. After being evaluated by personnel on site, an ambulance was called. In the emergency room, he developed left sided hemiparesis including left sided facial droop. Additionally , at this point he began experiencing speech disturbances and states I couldn't even get one word out. Once these symptoms developed, sary stroke was called and he was given TPA. He states that after TPA was administered, he began to be able to speak in sentences again, but with a severe stutter. The stutter has been ongoing since it began during this event. His stutter is characterized by dysfluencies at the beginnings of words, which are consistent across words within a sentence and consistent across contexts (phone, work, home, etc). His stutter also presents in automatic speech tasks. During singing, his dysfluency resolves. After code stroke was called, Prabhakar was admitted to the hospital in [place], where he had a normal CT, MRI, and EEG despite ongoing symptoms. In addition to ongoing dysfluency, Prabhakar ongoing left sided numbness and weakness. He also states that he occasionally has difficulty initiating the swallow reflex and will experience a couple false starts before he is able to re-attempt initiating that motor pattern. Once the swallow is initiated, he states he has no difficulty with getting food or liquid down. Prahbakar does endorse that there were multiple outside stressors occuring near the time of the onset of the suspected stroke (including closing on a house, of a family member, cancer diagnosis in another family member). 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 He does not believe that stress is related to his ongoing neurological symptoms. He does not have any previous significant psychological history or diagnoses. After his suspected stroke in July, Prabhakar attended a few sessions of speech therapy with [facility] ( unclear if in [place], [place] or [place], [place]), where he and the [employer] trialed delayed auditory feedback in addition to easy onset/light contact strategies in an attempt to remediate dysfluency. Melodic intonation therapy was also trialed. He states that delayed auditory feedback was discontinued as it did not prove beneficial. He is unsure whether melodic intonation and easy onset / light contact were helpful for him because he had to cancel multiple appointments due to the distance to attend, and discontinued speech therapy at [facility] after a short time. As of January of 2023, Prabhakar also saw a neuropsychologist who further supported the diagnosis of functional neurologic disorder. Prabhakar attended speech therapy at this clinic from December to March of last year before discontinuing tx due to surgery. Over the course of treatment, he had begun using fluency enhancing techniques such as stretchy speech with friends and loved ones. He stated that this did improve his fluency, but felt unnatural . His fluency also tended to fluctuate depending on outside stressors in his life, including of family members, conflict with adult siblings, etc. Since his surgery, Prabhakar reports that his fluency had remained relatively stable (severe in most cases, decreased at home) but that it became far more severe again starting in May after he learned that his mother had been diagnosed with leukemia. He states that he has started seeing behavioral health as of the last month, but feels it is too soon to say whether therapy has been helpful for him. Prabhakar wants to re-incorporate regular practice of fluency shaping techniques in order to increase fluency despite outside stressors impacting his speech production. Short Term Goals 1. Pt will benefit from education regarding principles of neuroplasticity in order to increase buy-in with therapeutic tasks and guide treatment plan. 2. Pt will complete speech prolongation and/or melodic intonation tasks in order to produce a 6 -syllable phrase with no dysfluencies observed. 3. Pt will demonstrate the use of fluency shaping and stuttering modification techniques to produce short phrases (2-3 words) without any instances of dysfluency. Vise Hand Goals Pt will demonstrate reduced instances of dysfluency to 10% of syllables stuttered or fewer based on fluency count of at least 100 syllables. Comment: Electronically Signed by: REBECCA Vazquez 07/24/23 [id number] If you are in agreement with this Plan of Care, please return a signed and dated copy. I have reviewed this Plan of Care and certify that the skilled therapy services above are required to meet the patient?s needs. Physician Signature Date Printed Name and Credentials Printed Name and Credentials
--- NOTE | 2023-08-02 13:35 | ST.OPTN ---
Visit Care Team Role Provider Type Cristian Jansen DO Family Provider Non-Staff Primary Care Provider Address: [address] [place] [address], [id number] Amado Mike MD Attending Provider Non-Staff Referring Provider Address: [facility], Fax: MOBILE UI/UX DESIGNER Treatment Note MOBILE UI/UX DESIGNER Treatment Note Start: 08/02/23 11:43 Freq: Status: Active Protocol: Document 08/02/23 11:43 CG (Rec: 08/02/23 11:57 CG [id number]) Speech Pathology Treatment Note Session Time Visit Start Time 09:47 Visit Stop Time 10:22 Total Visit Minutes 35 Visit Information Visit Number 2 Plan of Care Dates 07/19/23-10/19/23 Setting Treatment Setting Outpatient Care Next Note Type Next Note Type Treatment Note General Information Patient History Prabhakar Noel is a 32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 He presents to this clinic for an evaluation speech fluency due to acute- onset dysfluency following an intiating neurologic event in July 2022. Prabhakar was previously seen at this clinic for an evaluation and treatment of fluency, but treatment had to be discontinued due to Prabhakar undergoing major spinal surgery. 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 Prabhakar stated that the initiating event triggering multiple ongoing neurological symptoms occurred in July 2022. He states he was completing a physical training exercise for training in [place] when he began to feel that his legs were not working properly. After being evaluated by personnel on site, an ambulance was called. In the emergency room, he developed left sided hemiparesis including left sided facial droop. Additionally, at this point he began experiencing speech disturbances and states I couldn't even get one word out. Once these symptoms developed, code stroke was called and he was given TPA. He states that after TPA was administered, he began to be able to speak in sentences again, but with a severe stutter. The stutter has been ongoing since it began during this event. His stutter is characterized by dysfluencies at the beginnings of words, which are consistent across words within a sentence and consistent across contexts (phone, work, home, etc). His stutter also presents in automatic speech tasks. During singing, his dysfluency resolves. After code stroke was called, Prabhakar was admitted to the hospital in [place], where he had a normal CT, MRI, and EEG despite ongoing symptoms. In addition to ongoing dysfluency, Prabhakar ongoing left sided numbness and weakness. He also states that he occasionally has difficulty initiating the swallow reflex and will experience a couple false starts before he is able to re-attempt initiating that motor pattern. Once the swallow is initiated, he states he has no difficulty with getting food or liquid down. Prabhakar does endorse that there were multiple outside stressors occuring near the time of the onset of the suspected stroke (including closing on a house, of a family member, cancer diagnosis in another family member). 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 He does not believe that stress is related to his ongoing neurological symptoms . He does not have any previous significant psychological history or diagnoses. After his suspected stroke in July, Prabhakar attended a few sessions of speech therapy with [facility] (unclear if in [place], [place] or [place], [place]) , where he and the MOBILE UI/UX DESIGNER trialed delayed auditory feedback in addition to easy onset/light contact strategies in an attempt to remediate dysfluency. Melodic intonation therapy was also trialed. He states that delayed auditory feedback was discontinued as it did not prove beneficial. He is unsure whether melodic intonation and easy onset/ light contact were helpful for him because he had to cancel multiple appointments due to the distance to attend, and discontinued speech therapy at [facility] after a short time. As of January of 2023, Prabhakar also saw a neuropsychologist who further supported the diagnosis of functional neurologic disorder. Prabhakar attended speech therapy at this clinic from December to March of last year before discontinuing tx due to surgery. Over the course of treatment, he had begun using fluency enhancing techniques such as stretchy speech with friends and loved ones. He stated that this did improve his fluency, but felt unnatural. His fluency also tended to fluctuate depending on outside stressors in his life, including of family members, conflict with adult siblings, etc. Since his surgery, Prabhakar reports that his fluency had remained relatively stable ( severe in most cases, decreased at home) but that it became far more severe again starting in May after he learned that his mother had been diagnosed with leukemia. He states that he has started seeing behavioral health as of the last month, but feels it is too soon to say whether therapy has been helpful for him. Prabhakar wants to re-incorporate regular practice of fluency shaping techniques in order to increase fluency despite outside stressors impacting his speech production. Objective Short Term Goals 1. Pt will benefit from education regarding principles of neuroplasticity in order to increase buy-in with therapeutic tasks and guide treatment plan. 2. Pt will complete speech prolongation and/or melodic intonation tasks in order to produce a 6-syllable phrase with no dysfluencies observed. 3. Pt will demonstrate the use of fluency shaping and stuttering modification techniques to produce short phrases (2-3 words) without any instances of dysfluency. Longterm Goals Pt will demonstrate reduced instances of dysfluency to 10% of syllables stuttered or fewer based on fluency count of at least 100 syllables. Treatment Activities Reviewed progress with outside tx r/t fluency (ie behavioral health) along with identifying stressors which may or may not be contributing to dysfluency at this time in addition to some other symptoms which have popped up. Reviewed pt progress with metronome activity introduced during evaluation (practicing reading a passage with a metronome to guide pacing and add musicality). Practiced slowly increasing metronome pace to progress towards more natural-sounding speech. Additionally, coached pt on adding prosody to prolonged speech to increase naturalness , and added visual markers on syllables to read with emphasis. Assessment Patient Response to Treatment Good Rehab Potential Good Impairments Identified Other Impairment comment Fluency Progress Towards Goals Good Progress Assessment of Overall Progress Improving Assessment of Improvement Prabhakar states that he is experiencing some new symptoms such as short term memory loss and sharp pains in arms/ legs followed by numbness. He is working with physician to manage these symptoms. He states that he likes his behavioral health provider, but is having a difficult time seeing benefit for his speech and other symptoms as of yet. Practice of reading aloud at 73bpm resulted in fluent speech at the sentence level ( greater than 6 syllables). Pt was receptive to MOBILE UI/UX DESIGNER instruction to add speech like intonation and was able to independently add speech-like prosody to first sentence of trial paragraph ([place]). On second sentence, he resorted back to flat prosody, but benefitted from visual cues (accent markers) above certain syllables for rising intonation. As speed increased to 80bpm, pt was able to maintain approximately 80% fluency. Pt was agreeable to homework to make list of functional phrases to practice at 80bpm with prosody markers. Reviewed with Patient Home Exercise Program Patient/Caregiver Understanding Good Plan Amount of Therapy Recommended 3-4 Months Comment Every other week Therapeutic Contents Fluency
--- NOTE | 2024-05-22 10:31 | ST.OPDS ---
Visit Care Team Role Provider Type Cristian Jansen DO Family Provider Non-Staff Primary Care Provider Address: [address] [place] [address], [place], [address] Amado Mike MD Attending Provider Non-Staff Referring Provider Address: [address] [place] [address], [id number] CONTINUOUS MINING MACHINE OPERATOR Discharge Note CONTINUOUS MINING MACHINE OPERATOR Discharge Note Start: 08/02/23 11:43 Freq: Status: Active Protocol: Document 05/22/24 10:29 CG (Rec: 05/22/24 10:31 CG [id number]) Speech Pathology Treatment Note Session Time Visit Start Time 09:47 Visit Stop Time 10:22 Total Visit Minutes 35 Visit Information Visit Number 2 Plan of Care Dates 07/19/23-10/19/23 Setting Treatment Setting Outpatient Care Next Note Type Next Note Type Treatment Note General Information Patient History Prabhakar Nole is a 32-year-old male 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 He presents to this clinic for an evaluation speech fluency due to acute- onset dysfluency following an intiating neurologic event in July 2022. Prabhakar was previously seen at this clinic for an evaluation and treatment of fluency, but treatment had to be discontinued due to Prabhakar undergoing major spinal surgery. 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 Prabhakar stated that the initiating event triggering multiple ongoing neurological symptoms occurred in July 2022. He states he was completing a physical training exercise for training in [place] when he began to feel that his legs were not working properly. After being evaluated by personnel on site, an ambulance was called. In the emergency room, he developed left sided hemiparesis including left sided facial droop. Additionally, at this point he began experiencing speech disturbances and states I couldn't even get one word out. Once these symptoms developed, code stroke was called and he was given TPA. He states that after TPA was administered, he began to be able to speak in sentences again, but with a severe stutter. The stutter has been ongoing since it began during this event. His stutter is characterized by dysfluencies at the beginnings of words, which are consistent across words within a sentence and consistent across contexts (phone, work, home, etc). His stutter also presents in automatic speech tasks. During singing, his dysfluency resolves. After code stroke was called, Prabhakar was admitted to the hospital in [place], where he had a normal CT, MRI, and EEG despite ongoing symptoms. In addition to ongoing dysfluency, Prabhakar ongoing left sided numbness and weakness. He also states that he occasionally has difficulty initiating the swallow reflex and will experience a couple false starts before he is able to re-attempt initiating that motor pattern. Once the swallow is initiated, he states he has no difficulty with getting food or liquid down. Prabhakar does endorse that there were multiple outside stressors occuring near the time of the onset of the suspected stroke (including closing on a house, of a family member, cancer diagnosis in another family member). 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 He does not believe that stress is related to his ongoing neurological symptoms . He does not have any previous significant psychological history or diagnoses. After his suspected stroke in July, Prabhakar attended a few sessions of speech therapy with [facility] (unclear if in [place], [place] or [place], [place]) , where he and the CONTINUOUS MINING MACHINE OPERATOR trialed delayed auditory feedback in addition to easy onset/light contact strategies in an attempt to remediate dysfluency. Melodic intonation therapy was also trialed. He states that delayed auditory feedback was discontinued as it did not prove beneficial. He is unsure whether melodic intonation and easy onset/ light contact were helpful for him because he had to cancel multiple appointments due to the distance to attend, and discontinued speech therapy at [facility] after a short time. As of January of 2023, Prabhakar also saw a neuropsychologist who further supported the diagnosis of functional neurologic disorder. Prabhakar attended speech therapy at this clinic from December to March of last year before discontinuing tx due to surgery. Over the course of treatment, he had begun using fluency enhancing techniques such as stretchy speech with friends and loved ones. He stated that this did improve his fluency, but felt unnatural. His fluency also tended to fluctuate depending on outside stressors in his life, including of family members, conflict with adult siblings, etc. Since his surgery, Prabhakar reports that his fluency had remained relatively stable ( severe in most cases, decreased at home) but that it became far more severe again starting in May after he learned that his mother had been diagnosed with leukemia. He states that he has started seeing behavioral health as of the last month, but feels it is too soon to say whether therapy has been helpful for him. Prabhakar wants to re-incorporate regular practice of fluency shaping techniques in order to increase fluency despite outside stressors impacting his speech production. Objective Short Term Goals 1. Pt will benefit from education regarding principles of neuroplasticity in order to increase buy-in with therapeutic tasks and guide treatment plan. 2. Pt will complete speech prolongation and/or melodic intonation tasks in order to produce a 6-syllable phrase with no dysfluencies observed. 3. Pt will demonstrate the use of fluency shaping and stuttering modification techniques to produce short phrases (2-3 words) without any instances of dysfluency. Shelter Goals Pt will demonstrate reduced instances of dysfluency to 10% of syllables stuttered or fewer based on fluency count of at least 100 syllables. Treatment Activities Reviewed progress with outside tx r/t fluency (ie behavioral health) along with identifying stressors which may or may not be contributing to dysfluency at this time in addition to some other symptoms which have popped up. Reviewed pt progress with metronome activity introduced during evaluation (practicing reading a passage with a metronome to guide pacing and add musicality). Practiced slowly increasing metronome pace to progress towards more natural-sounding speech. Additionally, coached pt on adding prosody to prolonged speech to increase naturalness , and added visual markers on syllables to read with emphasis. Assessment Patient Response to Treatment Good Rehab Potential Good Impairments Identified Other Impairment comment Fluency Progress Towards Goals Good Progress Assessment of Overall Progress Improving Assessment of Improvement As of last treatment session, Prabhakar had stated that he was experiencing some new symptoms such as short term memory loss and sharp pains in arms/ legs followed by numbness. He was working with physician to manage these symptoms. During last data collection, practice of reading aloud at 73bpm resulted in fluent speech at the sentence level ( greater than 6 syllables). Pt was receptive to CONTINUOUS MINING MACHINE OPERATOR instruction to add speech like intonation and was able to independently add speech-like prosody to first sentence of trial paragraph ([place]). On second sentence, he resorted back to flat prosody, but benefitted from visual cues (accent markers) above certain syllables for rising intonation. As speed increased to 80bpm, pt was able to maintain approximately 80% fluency. Pt was agreeable to homework to make list of functional phrases to practice at 80bpm with prosody markers. This session described above was pt's only treatment session after evaluation. Since this session on August 02, 2023, pt has not followed with any new appointments. D/ c account at this time due to inactivity. Reviewed with Patient Home Exercise Program Patient/Caregiver Understanding Good Plan Amount of Therapy Recommended 3-4 Months Comment Every other week Therapeutic Contents Fluency
== END 2024-05-29 10:49 | disposition home or self-care (01) ==
LOC: SP 09:45
PROVIDERS: Family Provider Preventive Medicine Aerospace Medicine; PCP Preventive Medicine Aerospace Medicine; Referring Provider General Practice; Visit Provider General Practice
DX: F44.9 Dissociative and conversion disorder, unspecified (principal)
CPT/HCPCS: 92507; 92521

== ENCOUNTER → 2024-05-29 10:50 | Outpatient (RCR) | payer OTHER, SELFPAY ==
--- NOTE | 2023-01-25 16:06 | ST.OPIE ---
Visit Care Team Role Provider Type Cristian Jansen DO Family Provider Non-Staff Primary Care Provider Specialty: Medical Address: [address] [place] [address], [facility]. [place], [place], [address] Email: Amado Mike MD Attending Provider Non-Staff Referring Provider Specialty: Family Practice Address: [facility], Fax: Email: Speech-Language Pathology Initial Evaluation DRIER TAKE OFF TENDER Fluency Evaluation Start: 01/25/23 10:49 Freq: Status: Active Protocol: Document 01/25/23 10:50 CG (Rec: 01/25/23 15:00 CG [id number]) Fluency Evaluation Session Time Visit Start Time 10:30 Visit Stop Time 11:15 Total Visit Minutes 45 Visit Information Visit Number 1 Plan of Care Dates 01/25/23-04/26/23 Insurance Information Next Note Type Next Note Type Treatment Note Referral Referring Physician Amado Chao Reason for Referral Stuttering 2/ suspected stroke History Patient History Prabhakar Noel is a 32-year-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 He presents to this clinic for an evaluation speech fluency due to acute- onset dysfluency following a suspected CVA in July of 2022 (more details below). 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 Prabhakar states that the initiating event triggering multiple ongoing neurological symptoms occurred in July 2022. He states he was completing a physical training exercise for training in [place] when he began to feel that his legs were not working properly. After being evaluated by personnel on site, an ambulance was called. In the emergency room, he developed left sided hemiparesis including left sided facial droop. Additionally, at this point he began experiencing speech disturbances and states I couldn't even get one word out. Once these symptoms developed, code stroke was called and he was given TPA. He states that after TPA was administered, he began to be able to speak in sentences again, but with a severe stutter. The stutter has been ongoing since it began during this event. His stutter is characterized by dysfluencies at the beginnings of words, which are consistent across words within a sentence and consistent across contexts ( phone, work, home, etc). His stutter also presents in automatic speech tasks. During singing, his dysfluency resolves. After code stroke was called, Prabhakar was admitted to the [facility] in [place], where he had a normal CT, MRI, and EEG despite ongoing symptoms. In addition to ongoing dysfluency, Prabhakar states he also experiences ongoing left sided numbness and weakness. He also states that he occasionally has difficulty initiating the swallow reflex and will experience a couple false starts before he is able to re-attempt initiating that motor pattern. Once the swallow is initiated, he states he has no difficulty with getting food or liquid down. Prabhakar does endorse that there were multiple outside stressors occuring near the time of the onset of the suspected stroke (including closing on a house, of a family member, cancer diagnosis in another family member). 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 He does not believe that stress is related to his ongoing neurological symptoms . He does not have any previous significant psychological history or diagnoses. After his suspected stroke in July, Prabhakar attended a few sessions of speech therapy with [facility] (unclear if in [place], [place] or [place], [place]), where he and the DRIER TAKE OFF TENDER trialed delayed auditory feedback in addition to easy onset/light contact strategies in an attempt to remediate dysfluency. Melodic intonation therapy was also trialed. He states that delayed auditory feedback was discontinued as it did not prove beneficial. He is unsure whether melodic intonation and easy onset/ light contact were helpful for him because he had to cancel multiple appointments due to the distance to attend, and discontinued speech therapy at [facility] after a short time. Prabhakar has been seen by a neurologist in [place]. He is scheduled for follow up MRIs on February 01 to further assess whether there is evidence of neurologic injury. He was also referred to neuropsychology, and will have the results/report from that visit sometime later this month. - Background Family History Family History of Persistent Stuttering No Family History of Recovered Stuttering No Length of Time Since Stuttering Began 5 months Changes in Stuttering Since Onset None Patient Expression Emotional Response to Stuttering Awareness of stuttering, Frustration about speaking Describe Prabhakar is highly aware of his stuttering given that it is a completely new speech pattern for him that only occured after his suspected stroke. He stated that he did exhibit some secondary behaviors when his stuttering first started, but was able to stop himself from performing those behaviors after he was given information from [facility] DRIER TAKE OFF TENDER that secondary behaviors can exacerbate stuttering. 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 Therefore, since he is unable to communicate quickly and efficiently, he is unable to perform his job and is on limited duty status with the [employer]. He states that this is quite frustrating for him, but he does try to stay hopeful and positive. Patient History Teased About Stuttering No Discussed Stuttering with Family/Friends Yes Situations Where Stuttering Decreases/ N/A - Consistent across Increases contexts Only Jordanian Speaking Yes - Stuttering/Speech/Language Previosly Assessed for Speech/Language Yes: [facility] Concerns Describe Previous fluency therapy at [facility] Previous Speech/Language Therapy Yes Previous Therapy Results See pt history Fluency In Situations At Home Always At School Always New Situations Always Fluency Affecting Overall Communication At Home Always At School Always In New Situations Always - Assessment Behavioral Assessment Test Administered Fluency count/fluency sample; patient interview Results Prabhakar was observed to have 21 dysluencies within one minute of speech. Approximately every 2-3 words was stuttered. Types of dysfluencies included sound repetitions, syllable repetitions, and whole-word repetitions. No physical tension or secondary behaviors were noted. 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 However, an underlying cerebrovascular disease or injury has not yet been identified. Given that Prabhakar experienced a slight resolution of symptoms following administration of TPA, it is this DRIER TAKE OFF TENDER's belief that a neurologic event likely occurred, though none has been able to be detected on imaging. Prabhakar's current diagnosis of functional neurologic disorder does not seem consistent with patient presentation at this time. Disfluency Rate 21 instances/minute Secondary Behaviors No secondary behaviors noted. Physical Tension Other Describe No physical tension noted. Prognosis Prognosis Good Based on Negative prognostic indicators : unclear etiology and unclear medical treatment for underlying etiology, limited success with previous speech therapy Positive prognostic indicators : age, high prior level of function, family support, high motivation, high cognitive level Therapy Goals Short Term Goals 1. Pt will benefit from education regarding principles of neuroplasticity in order to increase buy-in with therapeutic tasks and guide treatment plan. 2. Pt will complete melodic intonation tasks in order to produce a 6-syllable phrase with no dysfluencies observed. 3. Pt will demonstrate the use of fluency shaping and suttering modification techniques to produce short phrases (2-3 words) without any instances of dysfluency. Legal Secretary Receptionist Goals Pt will demonstrate reduced instances of dysfluency to 10% of syllables stuttered or fewer based on fluency count of at least 100 syllables. Recommendations Suggested Referrals Neurology
--- NOTE | 2023-01-25 16:06 | ST.OPPOC ---
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 He presents to this clinic for an evaluation speech fluency due to acute-onset dysfluency following a suspected CVA in July of 2022 (more details below). 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 Prabhakar states that the initiating event triggering multiple ongoing neurological symptoms occurred in July 2022. He states he was completing a physical training exercise for training in [place] when he began to feel that his legs were not working properly. After being evaluated by personnel on site, an ambulance was called. In the emergency room, he developed left sided hemiparesis including left sided facial droop. Additionally, at this point he began experiencing speech disturbances and states I couldn't even get one word out. Once these symptoms developed, code stroke was called and he was given TPA. He states that after TPA was administered, he began to be able to speak in sentences again, but with a severe stutter. The stutter has been ongoing since it began during this event. His stutter is characterized by dysfluencies at the beginnings of words, which are consistent across words within a sentence and consistent across contexts (phone, work, home, etc). His stutter also presents in automatic speech tasks. During singing, his dysfluency resolves. After code stroke was called, Prabhakar was admitted to the hospital in [place], where he had a normal CT, MRI, and EEG despite ongoing symptoms. In addition to ongoing dysfluency, Prabhakar states he also experiences ongoing left sided numbness and weakness. He also states that he occasionally has difficulty initiating the swallow reflex and will experience a couple false starts before he is able to re-attempt initiating that motor pattern. Once the swallow is initiated, he states he has no difficulty with getting food or liquid down. Prabhakar does endorse that there were multiple outside stressors occuring near the time of the onset of the suspected stroke (including closing on a house, of a family member, cancer diagnosis in another family member). 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 He does not believe that stress is related to his ongoing neurological symptoms. He does not have any previous significant psychological history or diagnoses. After his suspected stroke in July, Prabhakar attended a few sessions of speech therapy with [facility] (unclear if in [place], [place] or [place], [place]), where he and the EQUIPMENT VALIDATION SPECIALIST trialed delayed auditory feedback in addition to easy onset/light contact strategies in an attempt to remediate dysfluency. Melodic intonation therapy was also trialed. He states that delayed auditory feedback was discontinued as it did not prove beneficial. He is unsure whether melodic intonation and easy onset/light contact were helpful for him because he had to cancel multiple appointments due to the distance to attend, and discontinued speech therapy at [facility] after a short time. Prabhakar has been seen by a neurologist in [place]. He is scheduled for follow up MRIs on February 01 to further assess whether there is evidence of neurologic injury. He was also referred to neuropsychology, and will have the results/report from that visit sometime later this month. Short Term Goals 1. Pt will benefit from education regarding principles of neuroplasticity in order to increase buy-in with therapeutic tasks and guide treatment plan. 2. Pt will complete melodic intonation tasks in order to produce a 6-syllable phrase with no dysfluencies observed. 3. Pt will demonstrate the use of fluency shaping and suttering modification techniques to produce short phrases (2-3 words) without any instances of dysfluency. Jail Goals Pt will demonstrate reduced instances of dysfluency to 10% of syllables stuttered or fewer based on fluency count of at least 100 syllables. Comment: Electronically Signed by: REBECCA Vazquez 01/25/23 [id number] If you are in agreement with this Plan of Care, please return a signed and dated copy. I have reviewed this Plan of Care and certify that the skilled therapy services above are required to meet the patient?s needs. Physician Signature Date Printed Name and Credentials Clinical Instructor Signature Printed Name and Credentials
--- NOTE | 2023-02-08 11:39 | ST.OPTN ---
Visit Care Team Role Provider Type Cristian Jansen DO Family Provider Non-Staff Primary Care Provider Address: [address] [place] [address]. [place], [address] Amado Mike MD Attending Provider Non-Staff Referring Provider Address: [facility], Fax: NON CATEGORICAL PRESCHOOL TEACHER Treatment Note NON CATEGORICAL PRESCHOOL TEACHER Treatment Note Start: 02/08/23 11:20 Freq: Status: Active Protocol: Document 02/08/23 11:20 CG (Rec: 02/08/23 11:30 CG [id number]) Speech Pathology Treatment Note Session Time Visit Start Time 10:30 Visit Stop Time 11:15 Total Visit Minutes 45 Visit Information Visit Number 2 Plan of Care Dates 01/25/23-04/26/23 Setting Treatment Setting Outpatient Care Next Note Type Next Note Type Treatment Note General Information Patient History 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 He presents to this clinic for an evaluation speech fluency due to acute- onset dysfluency following a suspected CVA in July of 2022 (more details below). 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 Prabhakar states that the initiating event triggering multiple ongoing neurological symptoms occurred in July 2022. He states he was completing a physical training exercise for training in [place] when he began to feel that his legs were not working properly. After being evaluated by personnel on site, an ambulance was called. In the emergency room, he developed left sided hemiparesis including left sided facial droop. Additionally, at this point he began experiencing speech disturbances and states I couldn't even get one word out. Once these symptoms developed, code stroke was called and he was given TPA. He states that after TPA was administered, he began to be able to speak in sentences again, but with a severe stutter. The stutter has been ongoing since it began during this event. His stutter is characterized by dysfluencies at the beginnings of words, which are consistent across words within a sentence and consistent across contexts ( phone, work, home, etc). His stutter also presents in automatic speech tasks. During singing, his dysfluency resolves. After code stroke was called, Prabhakar was admitted to the hospital in [place], where he had a normal CT, MRI, and EEG despite ongoing symptoms. In addition to ongoing dysfluency, Prabhakar states he also experiences ongoing left sided numbness and weakness. He also states that he occasionally has difficulty initiating the swallow reflex and will experience a couple false starts before he is able to re-attempt initiating that motor pattern. Once the swallow is initiated, he states he has no difficulty with getting food or liquid down. Prabhakar does endorse that there were multiple outside stressors occuring near the time of the onset of the suspected stroke (including closing on a house, of a family member, cancer diagnosis in another family member). 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 He does not believe that stress is related to his ongoing neurological symptoms . He does not have any previous significant psychological history or diagnoses. After his suspected stroke in July, Prabhakar attended a few sessions of speech therapy with [facility] (unclear if in [place], [place] or [place], [place]), where he and the NON CATEGORICAL PRESCHOOL TEACHER trialed delayed auditory feedback in addition to easy onset/light contact strategies in an attempt to remediate dysfluency. Melodic intonation therapy was also trialed. He states that delayed auditory feedback was discontinued as it did not prove beneficial. He is unsure whether melodic intonation and easy onset/ light contact were helpful for him because he had to cancel multiple appointments due to the distance to attend, and discontinued speech therapy at [facility] after a short time. Prabhakar has been seen by a neurologist in [place]. He is scheduled for follow up MRIs on February 01 to further assess whether there is evidence of neurologic injury. He was also referred to neuropsychology, and will have the results/report from that visit sometime later this month. Subjective Chief Complaint(s) Speech Additional Areas of Concern Fluency Objective Short Term Goals 1. Pt will benefit from education regarding principles of neuroplasticity in order to increase buy-in with therapeutic tasks and guide treatment plan. 2. Pt will complete melodic intonation tasks in order to produce a 6-syllable phrase with no dysfluencies observed. 3. Pt will demonstrate the use of fluency shaping and suttering modification techniques to produce short phrases (2-3 words) without any instances of dysfluency. Mail Censor Goals Pt will demonstrate reduced instances of dysfluency to 10% of syllables stuttered or fewer based on fluency count of at least 100 syllables. Treatment Activities Discussed updates on health status/multidisciplinary progress. Provided instruction in principles of neuroplasticity and goal of recruiting new brain areas for speech fluency. Instruction in Melodic Intonation Therapy (JONATAN) up to four syllables. Discussed fluency shaping vs. stuttering modification approaches to dysfluency and provided examples of each. discussed tense stuttering vs easy stuttering. Trials of prolongations/slow speech rate with pull-outs/cancellations on vowel-heavy sentences. Provided HEP with instruction to complete JONATAN tasks, develop two more phrases for JONATAN, and practice sentences aloud with prolongation/ easy stuttering. Assessment Patient Response to Treatment Good Rehab Potential Good Impairments Identified Speech,Other Impairment comment fluency Progress Towards Goals Good Progress Assessment of Overall Progress Improving Assessment of Improvement Pt was receptive to instruction in principles of neuroplasticity. He stated fluency exercises continue to feel strange, but understands the need to practice them to gradually increase how natural -sounding his speech will be while utilizing strategies. He was able to produce 4- syllable phrases with no dysfluencies observed in 50% of trials with JONATAN today. Additionally, during sentence reading tasks, fluency was increased with the use of prolongation/stretchy speech and leaning in to the stutter for a prolongation rather than a repetition. He will need repetitive practice of these strategies in order for them to begin to feel more natural, but he quickly learns trialed strategies which is positive for rehabilitative potential. Reviewed with Patient Goals,Home Exercise Program Plan Amount of Therapy Recommended 2-3 Months Frequency of Treatment Once a Week Length of Session 45 Minutes Therapeutic Contents Fluency Provided Patient/Caregiver Instruction Home Exercise Program,Plan of Care Therapy Recommendations Continue with Current Program
--- NOTE | 2023-02-15 11:37 | ST.OPTN ---
Visit Care Team Role Provider Type Cristian Jansen DO Family Provider Non-Staff Primary Care Provider Address: [address] [place] [address]. [place], [address] Amado Mike MD Attending Provider Non-Staff Referring Provider Address: [facility], Fax: COMPUTER PROGRAMMER CHIEF Treatment Note COMPUTER PROGRAMMER CHIEF Treatment Note Start: 02/08/23 11:20 Freq: Status: Active Protocol: Document 02/15/23 11:19 CG (Rec: 02/15/23 11:37 CG [id number]) Speech Pathology Treatment Note Session Time Visit Start Time 10:30 Visit Stop Time 11:15 Total Visit Minutes 45 Visit Information Visit Number 3 Plan of Care Dates 01/25/23-04/26/23 Setting Treatment Setting Outpatient Care Next Note Type Next Note Type Treatment Note General Information Patient History Prabhakar Noel is a 32-year-old 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 He presents to this clinic for an evaluation speech fluency due to acute- onset dysfluency following a suspected CVA in July of 2022 (more details below). 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 Prabhakar states that the initiating event triggering multiple ongoing neurological symptoms occurred in July 2022. He states he was completing a physical training exercise for training in [place] when he began to feel that his legs were not working properly. After being evaluated by personnel on site, an ambulance was called. In the emergency room, he developed left sided hemiparesis including left sided facial droop. Additionally, at this point he began experiencing speech disturbances and states I couldn't even get one word out. Once these symptoms developed, code stroke was called and he was given TPA. He states that after TPA was administered, he began to be able to speak in sentences again, but with a severe stutter. The stutter has been ongoing since it began during this event. His stutter is characterized by dysfluencies at the beginnings of words, which are consistent across words within a sentence and consistent across contexts ( phone, work, home, etc). His stutter also presents in automatic speech tasks. During singing, his dysfluency resolves. After code stroke was called, Prabhakar was admitted to the hospital in [place], where he had a normal CT, MRI, and EEG despite ongoing symptoms. In addition to ongoing dysfluency, Prabhakar states he also experiences ongoing left sided numbness and weakness. He also states that he occasionally has difficulty initiating the swallow reflex and will experience a couple false starts before he is able to re-attempt initiating that motor pattern. Once the swallow is initiated, he states he has no difficulty with getting food or liquid down. Prabhakar does endorse that there were multiple outside stressors occuring near the time of the onset of the suspected stroke (including closing on a house, of a family member, cancer diagnosis in another family member). 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 He does not believe that stress is related to his ongoing neurological symptoms . He does not have any previous significant psychological history or diagnoses. After his suspected stroke in July, Prabhakar attended a few sessions of speech therapy with [facility] (unclear if in [place], [place] or [place], [place]), where he and the COMPUTER PROGRAMMER CHIEF trialed delayed auditory feedback in addition to easy onset/light contact strategies in an attempt to remediate dysfluency. Melodic intonation therapy was also trialed. He states that delayed auditory feedback was discontinued as it did not prove beneficial. He is unsure whether melodic intonation and easy onset/ light contact were helpful for him because he had to cancel multiple appointments due to the distance to attend, and discontinued speech therapy at [facility] after a short time. Prabhakar has been seen by a neurologist in [place]. He is scheduled for follow up MRIs on February 01 to further assess whether there is evidence of neurologic injury. He was also referred to neuropsychology, and will have the results/report from that visit sometime later this month. Subjective Chief Complaint(s) Speech Additional Areas of Concern Fluency Objective Short Term Goals 1. Pt will benefit from education regarding principles of neuroplasticity in order to increase buy-in with therapeutic tasks and guide treatment plan. 2. Pt will complete melodic intonation tasks in order to produce a 6-syllable phrase with no dysfluencies observed. 3. Pt will demonstrate the use of fluency shaping and suttering modification techniques to produce short phrases (2-3 words) without any instances of dysfluency. Pulling Machine Operator Goals Pt will demonstrate reduced instances of dysfluency to 10% of syllables stuttered or fewer based on fluency count of at least 100 syllables. Treatment Activities Discussed updates on health status/multidisciplinary progress including reviewing results of neuropsych evaluation. Provided pt counseling/education related to the role of stress in stuttering and stress as a dfactor in decreased linguistic capacity. Trials of prolongations/slow speech rate with pull-outs/ cancellations on vowel-heavy sentences. Trialed prolongations/slow speech rate during conversational tasks with feedback on perceived fluency. Assessment Patient Response to Treatment Good Rehab Potential Good Impairments Identified Speech,Other Impairment comment fluency Progress Towards Goals Good Progress Assessment of Overall Progress Improving Assessment of Improvement Prabhakar reported today that his stutter is intermittent, only occurring when he is out of the house. He states he does not experience dysfluencies at home with his family, which makes practicing at home difficult because he feels he is not needing to correct a stutter. Discussed use of intentional stuttering at home in order to feel comfortable with stuttering in all contexts, as well as the need to practice fluency strategies outside of stressful contexts . Pt was receptive and understanding of stress's role in dysfluency. 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 Recent disclosing of context-based dysfluency makes sense in the context of FND. During sentence reading tasks, fluency was increased with the use of prolongation/stretchy speech and leaning in to the stutter for a prolongation rather than a repetition. Of the 9 sentences trialed with slow speech/continuous phonation, Prabhakar experienced 0 dysfluencies in 7 trials, 1 dysfluency in 1 trial, and 2 dysfluencies in 1 trial. During conversation task, he was able to utilize continous phonation/stretchy speech to resolve dysfluencies in approximately 70% of instances of dysfluency. Of note, his instances of dysfluency do increase when discussing stressful subjects, such as his divorce. Pt acknowledged this when prompted by COMPUTER PROGRAMMER CHIEF, in order to further bring awareness to psychological component of stuttering. COMPUTER PROGRAMMER CHIEF assigned homework to practice intentional stuttering at home and also to utilize stretchy speech at least one time in public this week. Reviewed with Patient Goals,Home Exercise Program Plan Amount of Therapy Recommended 2-3 Months Frequency of Treatment Once a Week Length of Session 45 Minutes Therapeutic Contents Fluency Provided Patient/Caregiver Instruction Home Exercise Program,Plan of Care Therapy Recommendations Continue with Current Program
--- NOTE | 2023-03-22 14:41 | ST.OPTN ---
Visit Care Team Role Provider Type Cristian Jansen DO Family Provider Non-Staff Primary Care Provider Address: [address] [place] [address]. [place], [address] mAado Mike MD Attending Provider Non-Staff Referring Provider Address: [facility], Fax: SOURCING ASSISTANT Treatment Note SOURCING ASSISTANT Treatment Note Start: 02/08/23 11:20 Freq: Status: Active Protocol: Document 03/22/23 14:21 CG (Rec: 03/22/23 14:41 CG [id number]) Speech Pathology Treatment Note Session Time Visit Start Time 13:30 Visit Stop Time 14:20 Total Visit Minutes 50 Visit Information Visit Number 4 Plan of Care Dates 01/25/23-04/26/23 Setting Treatment Setting Outpatient Care Next Note Type Next Note Type Treatment Note General Information Patient History Prabhakar Noel is a 32-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 He presents to this clinic for an evaluation speech fluency due to acute- onset dysfluency following a suspected CVA in July of 2022 (more details below). 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 Prabhakar states that the initiating event triggering multiple ongoing neurological symptoms occurred in July 2022. He states he was completing a physical training exercise for training in [place] when he began to feel that his legs were not working properly. After being evaluated by personnel on site, an ambulance was called. In the emergency room, he developed left sided hemiparesis including left sided facial droop. Additionally, at this point he began experiencing speech disturbances and states I couldn't even get one word out. Once these symptoms developed, code stroke was called and he was given TPA. He states that after TPA was administered, he began to be able to speak in sentences again, but with a severe stutter. The stutter has been ongoing since it began during this event. His stutter is characterized by dysfluencies at the beginnings of words, which are consistent across words within a sentence and consistent across contexts ( phone, work, home, etc). His stutter also presents in automatic speech tasks. During singing, his dysfluency resolves. After code stroke was called, Prabhakar was admitted to the hospital in [place], where he had a normal CT, MRI, and EEG despite ongoing symptoms. In addition to ongoing dysfluency, Prabhakar states he also experiences ongoing left sided numbness and weakness. He also states that he occasionally has difficulty initiating the swallow reflex and will experience a couple false starts before he is able to re-attempt initiating that motor pattern. Once the swallow is initiated, he states he has no difficulty with getting food or liquid down. Prabhakar does endorse that there were multiple outside stressors occuring near the time of the onset of the suspected stroke (including closing on a house, of a family member, cancer diagnosis in another family member). 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 He does not believe that stress is related to his ongoing neurological symptoms . He does not have any previous significant psychological history or diagnoses. After his suspected stroke in July, Prabhakar attended a few sessions of speech therapy with [facility] (unclear if in [place], [place] or [place], [place]), where he and the SOURCING ASSISTANT trialed delayed auditory feedback in addition to easy onset/light contact strategies in an attempt to remediate dysfluency. Melodic intonation therapy was also trialed. He states that delayed auditory feedback was discontinued as it did not prove beneficial. He is unsure whether melodic intonation and easy onset/ light contact were helpful for him because he had to cancel multiple appointments due to the distance to attend, and discontinued speech therapy at [facility] after a short time. Prabhakar has been seen by a neurologist in [place]. He is scheduled for follow up MRIs on February 01 to further assess whether there is evidence of neurologic injury. He was also referred to neuropsychology, and will have the results/report from that visit sometime later this month. Subjective Chief Complaint(s) Speech Additional Areas of Concern Fluency Objective Short Term Goals 1. Pt will benefit from education regarding principles of neuroplasticity in order to increase buy-in with therapeutic tasks and guide treatment plan. 2. Pt will complete melodic intonation tasks in order to produce a 6-syllable phrase with no dysfluencies observed. 3. Pt will demonstrate the use of fluency shaping and suttering modification techniques to produce short phrases (2-3 words) without any instances of dysfluency. Cab Station Attendant Goals Pt will demonstrate reduced instances of dysfluency to 10% of syllables stuttered or fewer based on fluency count of at least 100 syllables. Treatment Activities Discussed updates on health status/multidisciplinary progress. Discussed updates of symptoms given major life stressors. Trialed prolongations/slow speech rate with Mytopia game with SOURCING ASSISTANT providing feedback re use of prolongation. Assessment Patient Response to Treatment Good Rehab Potential Good Impairments Identified Speech,Other Impairment comment fluency Progress Towards Goals Good Progress Assessment of Overall Progress Improving Assessment of Improvement This is the pt's first appointment in over a month, which he reports is due to a in the family. He reported that his stepfather shortly after his last appointment. After his stepfather's , he states there was family conflict with his brother. With all of these stressors, he felt as though his fluency regressed and his stutter became worse. Though last session he reported his speech is generally fluent at home, he stated that after these events his speech at home became dysfluent once again. In addition to psychosocial stressors, the pt also reported that he is having lumbar surgery on Monday () due to back pain which was unable to be resolved with cortisol injections. The surgery is being performed by Dr. Martha lee at this facility. The recovery time for this surgery is at least 6 weeks. Due to this pause, pt will likely need to be discharged and receive new referral for speech therapy. Before the of his stepfather, he was utilizing prolongation/stretchy speech strategy with close friends. He felt that it was effective in reducing dysfluency, but still felt unnatural and odd. After stepfather's , ensuing family conflict, and arranging for back surgery, the pt was not practicing fluency strategies. Pt stated that he does have a referral in place for behavioral health and is supposed to be receiving care from a therapist, but the therapist has cancelled his last few appointments on a last-minute basis. He also states he would prefer to see someone face to face (this therapist was a teledoc). SOURCING ASSISTANT will reach out to PCP regarding changing behavioral health referral to a provider in [place] who can provide in-person care. During practice of prolongation strategy with [employer] game, Prabhakar was able to produce fluent words or gently stuttered words in 74% of opportunities, with tense stutters on the remaining 26%. It does still require significant cognitive load for Prabhakar to use this strategy while speaking, as his dysfluency increased when linguistic demands increased. Discussed setting aside a certain time of day in which to practice prolongation (one hour per day) in order to increase comfort with stretchy speech and ideally decrease unnatural catalino. Due to pt's surgery, pt will need to discharge and receive new referral to continue speech therapy. Anticipate goals/POC to carry over with this new referral unless there are significant changes in pt 's speech. Reviewed with Patient Goals,Home Exercise Program Plan Amount of Therapy Recommended 2-3 Months Frequency of Treatment Once a Week Length of Session 45 Minutes Therapeutic Contents Fluency Provided Patient/Caregiver Instruction Home Exercise Program,Plan of Care Therapy Recommendations Continue with Current Program
--- NOTE | 2024-05-22 10:28 | ST.OPDS ---
Visit Care Team Role Provider Type Cristian Jansen DO Family Provider Non-Staff Primary Care Provider Address: [address] [place] [address], [facility] [place], [address] Amado Mike MD Attending Provider Non-Staff Referring Provider Address: [address] [place] [address], [address] [employer] LAMP CLEAN[employer] Discharge Note STREET [employer]AMP CLE[employer]ER Discharge Note Start: 02/08/23 11:20 Freq: Status: Active Protocol: Document 05/22/24 10:20 CG (Rec: 05/22/24 10:28 CG [id number]) Speech Pathology Treatment Note Session Time Visit Start Time 13:30 Visit Stop Time 14:20 Total Visit Minutes 50 Visit Information Visit Number 4 Plan of Care Dates 01/25/23-04/26/23 Setting Treatment Setting Outpatient Care Next Note Type Next Note Type Treatment Note General Information Patient History Prabhakar Noel is a 32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 He presents to this clinic for an evaluation speech fluency due to acute- onset dysfluency following a suspected CVA in July of 2022 (more details below). He currently has a diagnosis of functional neurologic disorder /dissociative and conversion disorder (which does not seem consistent with history and symptoms as will be outlined below, based on this STREET LIGHT LAMP CLEANER's assessment). Prabhakar states that the initiating event triggering multiple ongoing neurological symptoms occurred in July 2022. He states he was completing a physical training exercise for training in [place] when he began to feel that his legs were not working properly. After being evaluated by personnel on site, an ambulance was called. In the emergency room, he developed left sided hemiparesis including left sided facial droop. Additionally, at this point he began experiencing speech disturbances and states I couldn't even get one word out. Once these symptoms developed, code stroke was called and he was given TPA. He states that after TPA was administered, he began to be able to speak in sentences again, but with a severe stutter. The stutter has been ongoing since it began during this event. His stutter is characterized by dysfluencies at the beginnings of words, which are consistent across words within a sentence and consistent across contexts ( phone, work, home, etc). His stutter also presents in automatic speech tasks. During singing, his dysfluency resolves. After code stroke was called, Prabhakar was admitted to the [facility] in [place], where he had a normal CT, MRI, and EEG despite ongoing symptoms. In addition to ongoing dysfluency, Prabhakar states he also experiences ongoing left sided numbness and weakness. He also states that he occasionally has difficulty initiating the swallow reflex and will experience a couple false starts before he is able to re-attempt initiating that motor pattern. Once the swallow is initiated, he states he has no difficulty with getting food or liquid down. Prabhakar does endorse that there were multiple outside stressors occuring near the time of the onset of the suspected stroke (including closing on a house, of a family member, cancer diagnosis in another family member). 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 He does not believe that stress is related to his ongoing neurological symptoms . He does not have any previous significant psychological history or diagnoses. After his suspected stroke in July, Prabhakar attended a few sessions of speech therapy with [facility] (unclear if in [place], [place] or [place], [place]), where he and the STREET L[employer] LAMP CLEANER trialed delayed auditory feedback in addition to easy onset/light contact strategies in an attempt to remediate dysfluency. Melodic intonation therapy was also trialed. He states that delayed auditory feedback was discontinued as it did not prove beneficial. He is unsure whether melodic intonation and easy onset/ light contact were helpful for him because he had to cancel multiple appointments due to the distance to attend, and discontinued speech therapy at [facility] after a short time. Prabhakar has been seen by a neurologist in [place]. He is scheduled for follow up MRIs on February 01 to further assess whether there is evidence of neurologic injury. He was also referred to neuropsychology, and will have the results/report from that visit sometime later this month. Subjective Chief Complaint(s) Speech Additional Areas of Concern Fluency Objective Short Term Goals 1. Pt will benefit from education regarding principles of neuroplasticity in order to increase buy-in with therapeutic tasks and guide treatment plan. 2. Pt will complete melodic intonation tasks in order to produce a 6-syllable phrase with no dysfluencies observed. 3. Pt will demonstrate the use of fluency shaping and suttering modification techniques to produce short phrases (2-3 words) without any instances of dysfluency. Head Shipper Goals Pt will demonstrate reduced instances of dysfluency to 10% of syllables stuttered or fewer based on fluency count of at least 100 syllables. Treatment Activities Treatment activities included: - instruction in use of prolongations/slow speech rate with STREET LIGHT LAMP CLEANER providing feedback re use of prolongation -pt counseling/education related to the role of stress in stuttering and stress as a dfactor in decreased linguistic capacity. -Trials of prolongations/slow speech rate with pull-outs/ cancellations on vowel-heavy sentences. -Instruction in Melodic Intonation Therapy (JONATAN) up to four syllables -Development of HEP for JONATAN and prolongation tasks Assessment Patient Response to Treatment Good Rehab Potential Good Impairments Identified Speech,Other Impairment comment fluency Progress Towards Goals Good Progress Assessment of Overall Progress Improving Assessment of Improvement Pt progress was variable due to limited attendance and outside stressors (e.g. in the family) causing fluctuating symptoms. Before the of his stepfather, he was utilizing prolongation/ stretchy speech strategy with close friends. He felt that it was effective in reducing dysfluency, but still felt unnatural and odd. During practice of prolongation strategy, as of last data collection, Prabhakar was able to produce fluent words or gently stuttered words in 74% of opportunities, with tense stutters on the remaining 26%. It did still require significant cognitive load for Prabhakar to use this strategy while speaking, as his dysfluency increased when linguistic demands increased. Due to pt's pending surgery with 6 week recovery time, pt will need to discharge and receive new referral to continue speech therapy. Anticipate goals/POC to carry over with this new referral unless there are significant changes in pt's speech. D/c this account. Reviewed with Patient Goals,Home Exercise Program Plan Amount of Therapy Recommended 2-3 Months Frequency of Treatment Once a Week Length of Session 45 Minutes Therapeutic Contents Fluency Provided Patient/Caregiver Instruction Home Exercise Program,Plan of Care
== END | disposition home or self-care (01) ==
LOC: SP 01-25 10:02
PROVIDERS: Family Provider Preventive Medicine Aerospace Medicine; PCP Preventive Medicine Aerospace Medicine; Referring Provider General Practice; Visit Provider General Practice
DX: F44.9 Dissociative and conversion disorder, unspecified (principal); R47.02 Dysphasia
CPT/HCPCS: 92507; 92521